=== PATIENT | male | born 1955 | race Caucasian/White ===

== ENCOUNTER → 2018-01-06 13:10 | Outpatient (CLI) | payer OTHER, SELFPAY ==
--- NOTE | 2018-01-06 13:15 | VDLE_ITS ---
Reason For Study: LEG PAIN RIGHT LEFT GSV is normal. CFV is compressible, spontaneous, phasic, CFV is compressible, spontaneous, phasic, competent, and demonstrates normal competent and demonstrates normal augmentation. augmentation. FV is compressible, spontaneous, phasic, competent and demonstrates normal augmentation. POP V is compressible, spontaneous, phasic, competent and demonstrates normal augmentation. T/P Trunk is compressible. PTV is compressible. RT PerV is compressible. Procedure Exam performed in department. A preliminary report was called and/or faxed to Dr. Kirby. Interpretation Summary Deep veins of the right lower extremity are patent and compressible segmentally. There is no evidence of right lower extremity deep vein thrombosis. Valvular competence appears intact within the proximal deep venous system on the right . The right greater saphenous vein appears patent and compressible segmentally. Ordering Physician: Gurpreet Kirby Referring Physician: Gurpreet Kirby Performed By: Yadira Romero RVT
== END ==
PROVIDERS: Family Provider Family Medicine; PCP Family Medicine; Visit Provider Family Medicine
DX: R60.0 Localized edema (principal); M79.606 Pain in leg, unspecified
CPT/HCPCS: 93971

== ENCOUNTER 2018-03-11 06:54 | Day surgery (SDC) | payer OTHER, SELFPAY ==
[2018-03-11] VITALS (7 sets, daily range): BP systolic 96–151; BP diastolic 51–81; PULSE 63–74; RESP 16–18; TEMP 36.6–37; O2SAT 94–97; BMI 30.2
--- NOTE | 2018-03-11 07:47 | HP.PCM_ITS ---
Past Medical/Surgical History - Planned Operation Planned Operative Procedure/s: colonosocpy open access Date of Operative Procedure: 03/11/18 Permit Signed: No S.O.S: No Is This Patient Having a Total Joint: No - Previous Hospitalizations/Surgeries HX Hospitalizations: No HX of Surgeries: gallbladder. colonoscopy x2 Any Problems With Anesthesia: No You/Your Family Experience Fever (Hyperthermia) With Anes: No Cholinesterase deficiency: No - Cardiovascular Hx Chest Pain within Last 2 months: No Hx of Irregular Heartbeat and/or Afib: No Hx Heart Attack: No Hx Congestive Heart Failure: No Hx Rheumatic Fever: No Hx Hypertension: Yes - controlled with med Hx Internal Defibrillator: No Hx Pacemaker: No Hx Cardiac Catheterization: No Hx Cardiac Surgery/Stents/Etc.: No Hx Stress Test: No HX Edema: No Hx Pain in Legs when Walking/Leg Cramps: No - Respiratory Chronic Cough: No HX of Shortness of Breath: No Hoarseness: No Hx Chronic Obstructive Pulmonary Disease (COPD): No Hx Asthma: No Hx Emphysema: No Hx Sleep Apnea: No Hx Oxygen Use at Home: No Hx Respiratory Tract Infection/Cold (presently): No Do You Snore Loudly (louder than talking or can be heard): Yes Do You Often Feel Tired/ Fatigued/ Sleepy Dring Daytime?: No Has Anyone Observed You Stop Breathing During Sleep?: No Result (for STOP score): Positive Hx Smoking: No Smoking Status: Never smoker - Gastrointestinal Hx Gastroesophageal Reflux: No Hx Gastrointestinal Disorders: No Hx Gastrointestinal Bleed: No Hx Ulcer: No Hx Hiatal Hernia: No Difficulty Chewing/Swallowing: No Recent Onset of Swallowing Problems: No Special diet followed at home: No Hx Unplanned Weight Loss of 20#: No HX Unplanned Weight Gain of 20#: No - Neurological Hx Seizures: No HX Syncope/Blackout Spells/Unconsciousness: No Hx CVA/Stroke: No Hx Transient Ischemic Attacks (TIA): No Hx Multiple Sclerosis: No Hx Parkinson's Disease: No Hx Head/Neck Injury: No Hx Headaches: No Hx Back Injury/Pain: No Recent Onset of Speech Difficulty: No Restless Legs: No Does patient have nerve stimulator: No Patient instructed to have device shut off: No Rep notified?: No - Blood Disorder Hx Leukemia: No Bleeding Tendencies: No Hx Deep Vein Thrombosis: No Hx High Cholesterol: Yes - no meds Blood Transmitted Disease: No Hx Hepatitis: No Hx Cirrhosis: No Hx Anemia: No Hx Blood Disorders: No - Genitourinary Hx Renal Disease: No - Musculoskeletal Hx Arthritis: No Hx Rheumatoid Arthritis: No Hx Gout: Yes - in the past Recent Onset of an Orthopedic Problem: No - Endocrine Hx Diabetes: No Thyroid Disease: No Hx Steroid Therapy: No - Psycho/Social Hx Substance Use: No Hx Alcohol Use: Yes - occ Hx Anxiety: No Hx Depression: No Mental Illness: No Hx Dementia: No - Miscellaneous Hx Cancer: No Recent Exposure to Contagious Disease: No Active MRSA: No Hx of C-Diff: No Any Loose Teeth: No Allergies Vxyyfpq-Tcl-Hul Reductase Inhibitor Adverse Reaction (Verified 03/10/18 08:15) muscle cramps - Discharge Is Pt Admitted From a Residential, or a Nursing Home: No Who Could Help: family After D/C, Where Do you Plan to Go: Return Home - From the PAT History Number of Risk Factors: 1 - Physical Exam General: Alert, Oriented x3, Cooperative HEENT: Atraumatic Lungs: Normal air movement Cardiovascular: Regular rate, Regular Rhythm Abdomen: Soft, Non Tender, Non-Distended Vital Signs Temp Pulse Resp BP Pulse Ox 98 F 74 16 151/81 H 97 03/11/18 07:11 03/11/18 07:11 03/11/18 07:11 03/11/18 07:11 03/11/18 07:11 Oxygen Delivery Method Room Air Weight: 228 lb 13.437 oz Body Mass Index (BMI) 30.2 Assessment/Plan 62-year-old male for screening colonoscopy. 1. The patient reports that he has had 2 colonoscopies in the past. He has no family history of colon cancer. His last colonoscopy was 7 years and they did find several polyps and he was recommended to have a repeat colonoscopy in 5 years but he has not followed up yet. He is having no abdominal pain or blood in his stool. No inadvertent weight loss. 2. I explained endoscopy in detail to the patient. I explained the risks including but not limited to stroke or heart attack with anesthesia, perforation of the GI tract, bleeding, infection. I explained that any of these could necessitate further emergency surgery. The patient understands and all questions were answered sufficiently. The patient wishes to proceed with procedure. Norberto Clark MD Pager: [facility] [address] [place] [address], [address] [place] [address] Office: Surgery Risks - Colonoscopy Risks Include but are not Limited To: Risks include but are not limited to: Bleeding, perforation requiring further surgery, inability to complete colonoscopy requiring barium enema.
--- NOTE | 2018-03-11 08:19 | COLBX_PTH ---
PATIENT: ANGEL CAMPO LOC: EN U#:[id number] AGE/SX: 62/M ROOM: RE03/11/[address]: Dr. Norberto Clark MD : [id number] BED: DIS: 03/11/2018 SPEC #: [id number] RECD: 03/11/18 12:30 STATUS: DYANA ANIKET #: [id number] [place]: 03/11/18 08:[address]: Norberto Clark DEPT: SURGICAL PATHOLOGY RECD BY: Rodo Gilliam ENTERED: 03/11/18 13:01 SP TYPE: COLON BX OTHR DR: Dr. Gurpreet Kirby, DO Tissues: A - Descending colon B - Descending colon Procedures: Surgery Specimen Level IV HEADER OPERATION: Colonoscopy PRE-OP DIAGNOSIS: Screening TISSUE SUBMITTED: A ? Proximal descending colon polyp biopsy, B ? Mid descending colon polyp biopsy MICROSCOPIC DIAGNOSIS A. Proximal descending colon polyp, biopsy: Tubular adenoma. B. Mid descending colon polyp, biopsy: Tubular adenoma. JOSELO:stefany 03/12/18 MICROSCOPIC DESCRIPTION Slides are reviewed. GROSS DESCRIPTION A - Received in fixative is one container labeled with the patient's name and designated proximal descending colon polyp biopsy. The specimen consists of two irregular fragments of light perera soft tissue that in aggregate measure 0.5 x 0.3 x 0.1 cm. The specimen is totally submitted in one cassette. B - Received in fixative is one container labeled with the patient's name and designated mid descending colon polyp biopsy. The specimen consists of one irregular fragment of light perera soft tissue that measures 0.3 x 0.2 x 0.1 cm. The specimen is totally submitted in one cassette. / SJ:stefany 03/11/18 TC:1 CPT: 46418 x2
--- NOTE | 2018-03-11 08:29 | PCM.OPRPT ---
Problem List (1) Screen for colon cancer Status: Acute Report of Operation Date of Procedure: 03/11/18 Pre-Operative Diagnosis: Screening colonoscopy Post-Operative Diagnosis: 2 small polyps Surgery/Procedure Performed:: Colonoscopy with biopsy Description of Procedure: The major risks and benefits associated with the procedure were explained to the patient in detail. The patient verbalized understanding and agreement with the same. The patient was brought to the endoscopy suite. After adequate sedation was achieved, the patient was placed in the left lateral decubitus position and a digital rectal exam was performed. This examination was within normal limits. A well-lubricated colonoscope was then inserted into the rectum and advanced under direct visualization to the level of the cecum. The bowel prep was good. The cecum was identified by both visual and anatomic landmarks. A photograph was taken of the end of the cecum. The scope was then fully withdrawn while examining the color, texture, anatomy and integrity of the mucosa from the cecum to the anal canal. The patient had 2 diminutive polyps in the descending colon which were both removed completely with cold forceps. Hemostasis was good at both sites. Otherwise the findings were consistent with normal colonic mucosa. Over 6 minutes were taken to examine the colonic mucosa. Upon reaching the rectum the scope was retroflexed to examine the distal rectal vault. The scope was then straightened and was completely retrieved upon exiting the anal canal and the procedure was terminated. The patient was then transferred to the recovery room in stable condition. Recommendations for follow up: Dependent on pathology.
== END 2018-03-11 09:05 | disposition home or self-care (01) ==
LOC: EN 06:54 → AC 07:44
PROVIDERS: Family Provider Family Medicine; PCP Family Medicine; Visit Provider Surgery
PROC: 0DJD8ZZ Inspection of Lower Intestinal Tract, Via Natural or Artificial Opening Endoscopic (ICD-10-PCS; CPT 45378; principal; 2018-03-11 07:55)
DX: Z12.11 Encounter for screening for malignant neoplasm of colon (principal); D12.4 Benign neoplasm of descending colon; I10 Essential (primary) hypertension; E78.00 Pure hypercholesterolemia, unspecified; Z86.39 Personal history of other endocrine, nutritional and metabolic disease
CPT/HCPCS: 45380; 88305; J7120

== ENCOUNTER → 2018-04-14 14:21 | Outpatient (CLI) | payer OTHER, SELFPAY ==
--- NOTE | 2018-04-14 14:25 | RAD_ITS ---
STUDY: X-RAY CHEST REASON FOR EXAM: Male, 62 years old. new onset aflutter, congestion TECHNIQUE: Frontal and lateral views of the chest. COMPARISON: None. FINDINGS: The lungs are clear and expanded. There is no demonstrated pleural abnormality. Normal size heart. Normal mediastinum and elisabeth. Normal visualized pulmonary arteries. Normal visualized aortic arch and descending thoracic aorta. There are diffuse degenerative changes of the visualized thoracic spine. There is degenerative osteoarthritis of the bilateral shoulders. There is no demonstrated abnormality of the visualized soft tissue structures of the upper abdomen. RAD/Chest PA and Lateral IMPRESSION: Degenerative changes, as described above. No demonstrated acute cardiopulmonary process. Electronically Signed: Ruben Conroy MD at 14:45 EDT Tel , Service support ,
[2018-04-14 15:21] LABS: Absolute Lymphocyte Count 1.69 X10^3/ul (0.83-4.51); Absolute Neutrophil Count 6.4 X10^3/uL (2.0-7.7); Basophil# 0.03 X10^3/uL; Basophil% 0.3 % (0-1); Eosinophil# 0.25 X10^3/uL; Eosinophils% 2.7 % (0-5); Hematocrit 46.3 % (40-54); Hemoglobin 15.8 g/dl (13.0-16.5); Lymphocyte # 1.69 X10^3/ul (4.0); Lymphocyte % 18.2 % (19-41); Mean Corp Hgb Conc 34.1 g/gl (32-36); Mean Corpuscular Hgb 31.4 pg (27.0-32.0); Mean Platelet Vol. 11.2 fl (6.2-12.0); Monocyte# 0.85 X10^3/uL; Monocyte% 9.2 % (0-10); Neutrophil # 6.44 X10^3/uL (2.7-7.7); Neutrophil % 69.5 % (47-70); Platelet Count 270 K/mm3 (150-450); RBC Distribution Width CV 12.9 % (11.6-14.6); RBC Distribution Width SD 42.4 fl (35.1-43.9); Red Blood Count 5.03 M/mm3 (4.6-6.2); White Blood Count 9.3 K/mm3 (4.4-11.0)
[2018-04-14 15:22] LABS: POSITIVE COUNT NO; POSITIVE DIFFERENTIAL NO; POSITIVE MORPHOLOGY NO
[2018-04-14 15:54] LABS: Anion Gap 10 (5-15); BUN 16 mg/dL (7-18); BUN/Creat Ratio 15.4 RATIO (10-20); Calcium,Total 9.4 mg/dL (8.5-10.1); Chloride 106 mmol/L (98-107); Creatinine, Serum 1.04 mg/dL (0.70-1.30); EST Glomerular Filtration Rate 76 mL/min (>60); Est Glom Filt Rate - Afr Amer 92 mL/min (>60); Glucose 96 mg/dL (74-106); Magnesium 2.3 mg/dL (1.6-2.6); Potassium 4.4 mmol/L (3.5-5.1); Sodium Level 141 mmol/L (136-145); Thyroid Stim Hormone (TSH) 1.82 uIU/mL (0.358-3.74)
== END ==
PROVIDERS: Family Provider Family Medicine; PCP Family Medicine; Visit Provider Family Medicine
DX: I48.92 Unspecified atrial flutter (principal); I10 Essential (primary) hypertension; R09.89 Other specified symptoms and signs involving the circulatory and respiratory systems
CPT/HCPCS: 36415; 71046; 80048; 83735; 84443; 85025

== ENCOUNTER 2018-04-16 14:57 | Inpatient (IN) | payer OTHER, SELFPAY ==
[2018-04-16] VITALS (16 sets, daily range): BP systolic 105–133; BP diastolic 66–98; PULSE 73–144; RESP 16–24; TEMP 36.5–36.8; O2SAT 95–98; BMI 30.8
--- NOTE | 2018-04-16 15:15 | EKG12_ITS ---
Test Reason : ADMISSION Blood Pressure : / mmHG Vent. Rate : 142 BPM Atrial Rate : 142 BPM P-R Int : 140 ms QRS Dur : 088 ms QT Int : 342 ms P-R-T Axes : 000 017 -61 degrees QTc Int : 526 ms Atrial flutter Abnormal ECG Confirmed by LINDEN WOODSON, AMAIRANI ([id number]), news video editor JAKE SÁNCHEZ ([id number]) on 04/21/2018 3:30:17 PM Referred By: Mike Palacios Confirmed By:AMAIRANI CHEATHAM MD
--- NOTE | 2018-04-16 15:21 | ECHOCS_ITS ---
Reason For Study: Atrial Flutter Procedure This was a 2D Doppler, Color Flow transthoracic echocardiogram. The study was technically difficult. Contrast injection was performed. Exam performed portable in patient room. Left Ventricle Normal LV size. Left ventricular systolic function is normal. The estimated ejection fraction is 60 %. Unable to assess diastolic dysfunction. No regional wall motion abnormalities noted. Right Ventricle Normal RV size. Normal systolic function. Atria Normal left atrium. Normal right atrium. No doppler evidence for ASD. Mitral Valve There is no mitral annular calcification. Normal mitral valve. Trivial mitral valve insufficiency. Tricuspid Valve Normal tricuspid valve. Trivial tricuspid valve insufficiency. Aortic Valve Trisinus/trileaflet aortic valve. Normal aortic valve. Trivial aortic valve insufficiency. Pulmonic Valve The pulmonic valve is not well visualized. Trivial pulmonic valve insufficiency. Great Vessels Normal sized aortic root. Pericardium/Pleural No pericardial effusion. Medication Diluted definity 3ml given slow IV push to enhance endocardial definition. MMode/2D Measurements & Calculations LVIDd: 4.3 cm IVSd: 1.2 cm Ao root diam: 4.6 cm LVIDs: 2.1 cm LVPWd: 1.1 cm FS: 50.0 % LAV(MOD-bp): 73.0 ml LA A4 area: 23.8 cm2 RA A4 area: 12.4 cm2 LAV(MOD-bp) Indexed: 31.7 ml/m2 LAV(MOD-sp2): 66.1 ml LAV(MOD-sp4): 75.4 ml Doppler Measurements & Calculations PA V2 max: 95.2 cm/sec Interpretation Summary The study was technically difficult. Contrast injection was performed. Left ventricular systolic function is normal. The estimated ejection fraction is 60 %. Trivial mitral valve insufficiency. Trivial tricuspid valve insufficiency. Trivial aortic valve insufficiency. Trivial pulmonic valve insufficiency. Unable to assess diastolic dysfunction. Ordering Physician: Mike Palacios Referring Physician: Mike Palacios Performed By: Eulogio Lopez RCS
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
[2018-04-16] MEDS: dilTIAZem 25 MG/5 ML Vial 10 MG IV BOLUS (15:49)
[2018-04-16] MEDS: 0.9% NaCl Peripheral Flush Adult/Peds IV (15:55)
[2018-04-16 16:10] LABS: Hematocrit 46.8 % (40-54); Hemoglobin 15.7 g/dl (13.0-16.5); Mean Corp Hgb Conc 33.5 g/gl (32-36); Mean Corpuscular Hgb 30.8 pg (27.0-32.0); Mean Corpuscular Volume 91.9 fL (80-94); Mean Platelet Vol. 10.9 fl (6.2-12.0); Platelet Count 293 K/mm3 (150-450); RBC Distribution Width CV 12.7 % (11.6-14.6); RBC Distribution Width SD 42.6 fl (35.1-43.9); Red Blood Count 5.09 M/mm3 (4.6-6.2); White Blood Count 9.6 K/mm3 (4.4-11.0)
[2018-04-16 16:11] LABS: Scan Indicated on CBC? Y/N NO
[2018-04-16 16:22] LABS: Prothrombin Time (Protime)PT. 13.2 SECONDS (11.7-14.9)
[2018-04-16 16:23] LABS: Partial Thromboplast Time 29.4 Seconds (24.1-36.2)
[2018-04-16] MEDS: Heparin Injection (Vial) 5,000 UNIT/ML VIAL IV (16:26)
[2018-04-16 16:30] LABS: ALB/GLOB Ratio 0.9 RATIO (0.9-2.4); AST(SGOT) 18 U/L (15-37); Alanine Aminotransfer ALT/SGPT 37 U/L (16-61); Albumin, Serum 3.7 g/dL (3.2-5.0); Alkaline Phosphatase 88 U/L (45-117); Anion Gap 9 (5-15); BUN 20 mg/dL (7-18); Calcium,Total 9.2 mg/dL (8.5-10.1); Chloride 105 mmol/L (98-107); Creatinine, Serum 1.05 mg/dL (0.70-1.30); EST Glomerular Filtration Rate 76 mL/min (>60); Est Glom Filt Rate - Afr Amer 91 mL/min (>60); Estimated Creatinine Clearance 80.32 ml/min; Globulin 3.9 g/dL (2.2-4.2); Glucose 86 mg/dL (74-106); Magnesium 2.2 mg/dL (1.6-2.6); Potassium 4.3 mmol/L (3.5-5.1); Protein, Total 7.6 g/dL (6.4-8.2); Sodium Level 139 mmol/L (136-145)
[2018-04-16 16:38] LABS: Thyroid Stim Hormone (TSH) 2.46 uIU/mL (0.358-3.74)
[2018-04-16 16:39] LABS: D-Dimer Quantitative (DVT/PE) < 0.27 FEU/ug/m (0.27-0.49)
--- NOTE | 2018-04-16 17:05 | RAD_ITS ---
STUDY: X-RAY CHEST REASON FOR EXAM: Male, 62 years old. Atrial flutter TECHNIQUE: PA and lateral COMPARISON: April 14, 2018 FINDINGS: Nonspecific elevation of the right hemidiaphragm. Lungs are clear.. There is no demonstrated pleural abnormality. Normal size heart. Normal mediastinum and elisabeth. Normal visualized pulmonary arteries. Normal visualized aortic arch and descending thoracic aorta. Dorsal spine demonstrates spondylosis Normal visualized ribs, clavicles. There are degenerative changes of the shoulders There are postsurgical changes in the right upper quadrant. No significant changes since prior exam RAD/Chest PA and Lateral IMPRESSION: No acute cardiopulmonary pathology Electronically Signed: Edis Motta MD at 20:59 EDT , Service support ,
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
--- NOTE | 2018-04-16 17:28 | CON.PCM_ITS ---
Problem List (1) Atrial flutter Status: Acute (2) Hyperlipidemia Status: Chronic Qualifiers: Hyperlipidemia type: unspecified Qualified Code(s): E78.5 - Hyperlipidemia , unspecified (3) Hypertension Status: Chronic Qualifiers: Reason for Consult Date of Consultation: 04/16/18 History of Present Illness: The patient is a 62 year old white male who presented to the outpatient setting this day for outpatient cardiovascular consultation of her recent cardiovascular diagnosis of atrial flutter with rapid ventricular response. He states his best of his knowledge she has never had any cardiovascular concerns. He recently traveled to and from [facility] [place] in [place]. He notes it is approximately a [address]. While in [place] he began to feel a jittery sensation in his chest. He states he felt somewhat anxious or nervous. He did not necessarily note other forms of chest discomfort or difficulty breathing. He did not have any episodes of obvious orthopnea, PND, or peripheral pitting edema. There was no near syncope or syncope. He subsequently returned to [place]. He was evaluated by his primary care physician on 04/14/2018. In the office he was diagnosed with atrial flutter with what appeared to be a 2-1 AV conduction with a ventricular rate of approximately 150 bpm. He underwent laboratory studies and chest x-rays which were unrevealing for any acute changes. He was placed on metoprolol succinate 50 mg p.o. daily. He was released home with instructions to report to the emergency department if he had acute issues and otherwise await upcoming cardiovascular consultation. He was seen in cardiovascular consultation this day in the outpatient setting. He appeared to remain in atrial flutter with variable rate with ventricular rates ranging from the 130s through the 140s. He had what appeared to be an RSR prime pattern which was considered nondiagnostic. He had nonspecific ST segment abnormality. He states he has not had any previous cardiovascular diagnosis to the best of his knowledge. He has not had any previous cardiovascular diagnostic studies performed to the best of his knowledge. He states he has been treated for hypertension in the past. He is not convinced his amlodipine has been all that successful for him. He states he has a history of hyperlipidemia. However he states he is not on any lipid-lowering therapy. [] Past Medical History Allergies/Adverse Reactions: Allergies Imcpkau-Bfl-Qyq Reductase Inhibitor Adverse Reaction (Verified 04/16/18 13:13) muscle cramps Home Medications: Ambulatory Orders Medication Instructions Recorded Amlodipine Besylate [Norvasc] 10 mg PO DAILY 03/10/18 Multivitamin [Multiple Vitamins] 1 ea PO DAILY 03/10/18 metoprolol succinate ER 50 mg 50 mg PO DAILY@1500 04/16/18 tablet,extended release 24 hr Past Medical History (Chronic Problems): Chronic Problems (Last Reviewed 04/16/18 @ 15:54 by Mike Palacios DO) Hypertension (Chronic) Hyperlipidemia (Chronic) Screen for colon cancer (Chronic) Surgical History: cholecystectomy, tonsillectomy Psychiatric History: No pertinent psych hx - *Family History Maternal Family History: Family History (Last Reviewed 04/16/18 @ 15:55 by Mike Palacios DO) Father CAD (coronary artery disease) Myocardial infarction Brother Myocardial infarction CAD (coronary artery disease) History Items: Cancer - melanoma Sibling Family History: Family History (Last Reviewed 04/16/18 @ 15:55 by Mike Palacios DO) Father CAD (coronary artery disease) Myocardial infarction Brother Myocardial infarction CAD (coronary artery disease) History Items: Heart Disease Paternal Family History: Family History (Last Reviewed 04/16/18 @ 15:55 by Mike Palacios DO) Father CAD (coronary artery disease) Myocardial infarction Brother Myocardial infarction CAD (coronary artery disease) History Items: Cancer - esophageal, Heart Disease Lives: Spouse/ Significant Other Smoking Status: Never smoker Tobacco Use: Non-smoker Alcohol: Occasional Drugs: None Review of Systems - Review of Systems General: Denies: Fever, Night Sweats, Fatigue Cardiovascular: Reports: Palpitations. Denies: Chest Discomfort, Shortness of Breath, Orthopnea, PND, Peripheral Edema, Lightheadedness, Dizziness, Near Syncope, Syncope Respiratory: Denies: Cough, Sputum Production, Hemoptysis Gastrointestinal: Denies: Hematemesis, Hematochezia, Melena Genitourinary: Denies: Dysuria, Hematuria Skin: Denies: Rash Subjectve: This is a pleasant 62-year-old white male who appears to be resting comfortably at the moment in no acute distress. Objective: Vital Signs Temp Pulse Resp BP Pulse Ox 98.0 F 123 H 17 129/74 H 96 04/16/18 15:15 04/16/18 16:30 04/16/18 16:30 04/16/18 16:30 04/16/18 16:30 Oxygen Delivery Method Room Air Weight: 233 lb 8 oz Body Mass Index (BMI) 30.8 General: Awake, Alert, Oriented x 3, Cooperative, No Acute Distress HEENT: Atraumatic, Normocephalic, PERRL, EOMI, Sclera Non Icteric Oral: Moist Mucosa Neck: Supple, Good ROM, No JVD Lungs: Clear to auscultation Cardiovascular: Irregular Rhythm, Normal S1, Normal S2 Vascular: No Carotid Bruits Abdomen: Bowel Sounds Present, Soft, Non Tender Extremities: No Cyanosis, No Clubbing, No edema Neurological: No Focal Motor or Sensory Deficit Psych/Mental Status: Appropriate, Normal Affect 04/16/18 15:52: PT 13.2, INR 1.0, APTT 29.4, D-Dimer Quant (PE/DVT) < 0.27 L 04/16/18 15:52: WBC 9.6, RBC 5.09, Hgb 15.7, Hct 46.8, MCV 91.9, MCH 30.8, MCHC 33.5, RDW 12.7, RDW Differential 42.6, Plt Count 293, MPV 10.9 04/16/18 15:52: Sodium 139, Potassium 4.3, Chloride 105, Carbon Dioxide 25.0, Anion Gap 9, BUN 20 H, Creatinine 1.05, Est GFR (MDRD) Af Amer 91, Est GFR (MDRD ) Non-Af 76, BUN/Creatinine Ratio 19.0, Glucose 86, Calcium 9.2, Magnesium 2.2, Total Bilirubin 0.70, Troponin I < 0.015 Rhythm: As noted above EKG: As noted above ECHO: Pending Stress Test: Pending CXR: Chest x-ray report from 04/14/2018 demonstrated no acute cardiopulmonary disease process per the radiology report. Assessment/Plan 1. Atrial flutter with rapid ventricular response The patient presents with a new diagnosis of atrial flutter with rapid ventricular response. It appears based upon his symptomatic history this may be have been in process for at least one week. He was evaluated 2 days ago and noted to be in atrial flutter with what appeared to be a 2-1 AV conduction. Today despite being on his beta-danielito therapy he appears to remain in atrial flutter with a variable AV block with rapid ventricular response. At the present time it was felt the patient would be better served being in the hospital for further evaluation and care. This will include additional laboratory studies as deemed appropriate including a d-dimer level to evaluate for any obvious thromboembolic disease related to his recent travels that would be contributing to his underlying atrial dysrhythmia. Also it would provide the opportunity for additional cardiovascular evaluation of his cardiac anatomy and function such as echocardiographic studies, exercise tolerance test/imaging studies, invasive cardiovascular studies if warranted, as well as an opportunity to attempt to regain sinus rhythm not only medically with rate control therapy, but with other options such as MALOU guided synchronized biphasic DC cardioversion. In the interim the patient would be treated medically. This will include IV diltiazem in attempt to slow his rate. It would also include anticoagulant therapy with IV heparin which can be adjusted in and around the time of various procedures especially if he would need any invasive procedures. Long-term the patient will need oral systemic anticoagulant therapy. Also, long-term the patient may be considered for referral to electrophysiology for consideration for flutter ablation therapy. 2. Hyperlipidemia The patient can have his lipid labs evaluated. He will need to be treated as deemed appropriate. 3. Hypertension The patient's blood pressure will be monitored. His medications may need to be adjusted to assist with his blood pressure control. Comment: The above was discussed with the patient, his spouse, and Dr. Palacios of the [facility] hospitalist staff. This note was generated with [employer] dictation software. It may contain incorrect words, spelling, and punctuation that were not noted in checking the note before signing.
[2018-04-16 22:44] LABS: Partial Thromboplast Time 100.6 Seconds (24.1-36.2)
[2018-04-17] VITALS (31 sets, daily range): BP systolic 101–164; BP diastolic 60–98; PULSE 58–138; RESP 10–22; TEMP 36.4–36.9; O2SAT 94–97
[2018-04-17 04:13] LABS: Partial Thromboplast Time 59.6 Seconds (24.1-36.2)
[2018-04-17] MEDS: Aspirin 81 MG TAB.CHEW PO (05:32)
[2018-04-17 05:54] LABS: Absolute Neutrophil Count 4.4 X10^3/uL (2.0-7.7); Basophil# 0.02 X10^3/uL; Basophil% 0.3 % (0-1); Eosinophil# 0.38 X10^3/uL; Eosinophils% 4.8 % (0-5); Hematocrit 46.2 % (40-54); Hemoglobin 15.2 g/dl (13.0-16.5); Lymphocyte % 29.3 % (19-41); Mean Corp Hgb Conc 32.9 g/gl (32-36); Mean Corpuscular Hgb 30.4 pg (27.0-32.0); Mean Corpuscular Volume 92.4 fL (80-94); Mean Platelet Vol. 11.1 fl (6.2-12.0); Monocyte# 0.73 X10^3/uL; Monocyte% 9.3 % (0-10); Neutrophil % 56.2 % (47-70); Platelet Count 254 K/mm3 (150-450); RBC Distribution Width CV 12.8 % (11.6-14.6); RBC Distribution Width SD 42.7 fl (35.1-43.9); White Blood Count 7.8 K/mm3 (4.4-11.0)
--- NOTE | 2018-04-17 05:55 | EKG12_ITS ---
Test Reason : AM EKG Blood Pressure : / mmHG Vent. Rate : 073 BPM Atrial Rate : 073 BPM P-R Int : 218 ms QRS Dur : 102 ms QT Int : 376 ms P-R-T Axes : 034 004 -01 degrees QTc Int : 414 ms Atrial flutter Confirmed by LINDEN WOODSON, AMAIRANI ([id number]), editor managing director JAKE SÁNCHEZ ([id number]) on 04/21/2018 3:26:49 PM Referred By: Mike Palacios Confirmed By:AMAIRANI CHEATHAM MD
[2018-04-17 05:58] LABS: Prothrombin Time (Protime)PT. 13.3 SECONDS (11.7-14.9)
[2018-04-17 06:10] LABS: POSITIVE COUNT NO; POSITIVE DIFFERENTIAL NO; POSITIVE MORPHOLOGY NO
[2018-04-17 06:23] LABS: Anion Gap 9 (5-15); BUN 17 mg/dL (7-18); Chloride 107 mmol/L (98-107); Cholesterol 231 mg/dL (200); Creatinine, Serum 1.06 mg/dL (0.70-1.30); EST Glomerular Filtration Rate 75 mL/min (>60); Est Glom Filt Rate - Afr Amer 90 mL/min (>60); Estimated Creatinine Clearance 79.56 ml/min; Glucose 85 mg/dL (74-106); High Density Lipoprotein 37 mg/dL; Potassium 4.2 mmol/L (3.5-5.1); Sodium Level 141 mmol/L (136-145); Triglycerides 204 mg/dL; Very Low Density Lipoprotein 41 mg/dL (5-40)
--- NOTE | 2018-04-17 06:45 | NURSING ---
THE PATIENT IS OFF THE FLOOR GETTING STRESS TEST NOW.
[2018-04-17 09:37] LABS: Partial Thromboplast Time 46.9 Seconds (24.1-36.2)
[2018-04-17] MEDS: Heparin Injection (Vial) 5,000 UNIT/ML VIAL IV (09:55)
[2018-04-17] MEDS: Multivitamins,Therapeutic Tablet 1 TABLET PO (09:55)
--- NOTE | 2018-04-17 10:01 | STRESSREP ---
Stress Test Report Date: 04/16/2018 Procedure: Pharmacologic stress nuclear imaging study Indications: Palpitations; atrial flutter Consent: Per the patient Procedure: The patient underwent pharmacologic (Regadenoson) evaluation with a peak heart rate of 148 beats per minute (94 predicted maximal heart rate) and a peak blood pressure of 130/84 mmHg. The baseline ECG demonstrated atrial flutter with variable AV block. The peak pharmacologic ECG demonstrated no obvious ECG changes. There was a rare PVC during recovery. There was no complaint of chest discomfort during pharmacologic infusion or recovery. The examination was discontinued secondary to completion of protocol. Impression: 1. Pharmacologic (Regadenoson) evaluation 2. Peak pharmacologic ECG with no obvious ECG changes. 3. There was a rare PVC during recovery 4. Nuclear images pending Myocardial perfusion imaging study: Technique: The patient was injected with 14.8 millicuries of technetium 99m Cardiolite and subsequently rest SPECT Cardiolite nuclear imaging was obtained in the horizontal long, vertical long, and short axis views. The patient underwent pharmacologic (Regadenoson) evaluation with a peak heart rate of 148 beats per minute (94 % percent predicted maximal heart rate) and a peak blood pressure of 130/84 mmHg. The patient was injected with 44.7 millicuries of technetium 99m Cardiolite and subsequently stress SPECT Cardiolite nuclear imaging was obtained in the horizontal long, vertical long, and short axis views. A gated Cardiolite study at peak stress was obtained. Interpretation: Rest and stress SPECT Cardiolite nuclear imaging status post realignment, normalization, and attenuation correction demonstrate relative uniform tracer uptake and myocardial perfusion appearing within normal limits. There is end systolic thickening and brightening. The gated Cardiolite study demonstrates myocardial thickening and inward wall motion. The reported LVEF is 53 %. Impression: 1. Rest and stress SPECT Cardiolite nuclear imaging demonstrate relative uniform tracer uptake and myocardial perfusion appearing within normal limits. 2. The gated Cardiolite study reports an LVEF of 53 %. This note was generated with [employer] software. It may contain incorrect words, spelling, and punctuation that were not noted in checking the note before signing.
--- NOTE | 2018-04-17 10:05 | EKG12_ITS ---
Test Reason : POST CARDIOVERSION Blood Pressure : / mmHG Vent. Rate : 060 BPM Atrial Rate : 060 BPM P-R Int : 128 ms QRS Dur : 102 ms QT Int : 414 ms P-R-T Axes : 000 -07 010 degrees QTc Int : 414 ms Normal sinus rhythm Inferior infarct , age undetermined , cannot be excluded Abnormal ECG Confirmed by LINDEN WOODSON, AMAIRANI ([id number]), school photograph editor JAKE SÁNCHEZ ([id number]) on 04/24/2018 8:27:20 AM Referred By: Mike Palacios Confirmed By:AMAIRANI CHEATHAM MD
--- NOTE | 2018-04-17 10:05 | ECHOTEE_ITS ---
Reason For Study: Afib-Flutter Medication MALOU probe passed with minimal difficulty. No complications were noted. Topex Topical Kellogg given X9 metered doses orally. Versed 2 mg given slow IVP. Fentanyl 100 mcg given slow IVP. Performed a rapid injection of agitated mix of 9 cc saline and 1cc air to assess for atrial septal defect. Left Ventricle Normal LV size. Left ventricular systolic function is normal. The estimated ejection fraction is 60 %. No regional wall motion abnormalities noted. Right Ventricle Normal RV size. The right ventricular wall motion is normal. Atria No doppler evidence for ASD. Bubble contrast study negative for right to left interatrial shunt. The left atrium is mildly enlarged. There is no sponatenous contrast in the left atrium. No thrombus is detected in the left atrial appendage. Normal right atrium. There is no sponatenous contrast in the right atrium. No RA / appendage thrombus identified. Mitral Valve There is no mitral annular calcification. Normal mitral valve. Mild-Moderate (1-2+) mitral valve insufficiency. Tricuspid Valve Normal tricuspid valve. Trivial tricuspid valve insufficiency. Aortic Valve Trisinus/trileaflet aortic valve. Normal aortic valve. Pulmonic Valve The pulmonic valve is not well visualized. Vessels Borderline enlarged aortic root / ascending aorta. Pericardium No pericardial effusion. Interpretation Summary Left ventricular systolic function is normal. The estimated ejection fraction is 60 %. The left atrium is mildly enlarged. There is no sponatenous contrast in the left atrium. No thrombus is detected in the left atrial appendage. Mild-Moderate (1-2+) mitral valve insufficiency. Trivial tricuspid valve insufficiency. Bubble contrast study negative for right to left interatrial shunt. Borderline enlarged aortic root / ascending aorta. Ordering Physician: Vineet Campos Referring Physician: Mike Palacios Performed By: Eulogio Lopez RCS ??? Reason For Study: Afib-Flutter Interpretation Summary Left ventricular systolic function is normal. The estimated ejection fraction is 60 %. The left atrium is mildly enlarged. There is no sponatenous contrast in the left atrium. No thrombus is detected in the left atrial appendage. Mild-Moderate (1-2+) mitral valve insufficiency. Trivial tricuspid valve insufficiency. Bubble contrast study negative for right to left interatrial shunt. Borderline enlarged aortic root / ascending aorta. Ordering Physician: Vineet Campos Referring Physician: Mike Palacios Performed By: Eulogio Lopez RCS
--- NOTE | 2018-04-17 11:40 | CASEMGMT ---
This RN CM to room to complete CM assessment and pt is out of the dept for testing at this time. Will attempt again later. SStaten RN CM
--- NOTE | 2018-04-17 13:25 | EKG12_ITS ---
Test Reason : PREOP Blood Pressure : / mmHG Vent. Rate : 098 BPM Atrial Rate : 098 BPM P-R Int : 128 ms QRS Dur : 088 ms QT Int : 296 ms P-R-T Axes : 000 010 007 degrees QTc Int : 377 ms Sinus rhythm with marked sinus arrhythmia Abnormal ECG Confirmed by LINDEN WOODSON, AMAIRANI ([id number]), editor dictionary JAKE SÁNCHEZ ([id number]) on 04/24/2018 8:27:45 AM Referred By: Mike Palacios Confirmed By:AMAIRANI CHEATHAM MD
--- NOTE | 2018-04-17 13:28 | PCM.OP.BLANK ---
Problem List (1) Atrial flutter Status: Acute (2) Hyperlipidemia Status: Chronic Qualifiers: Hyperlipidemia type: unspecified Qualified Code(s): E78.5 - Hyperlipidemia, unspecified (3) Hypertension Status: Chronic Qualifiers: Operative Report Date of Procedure: 04/17/18 Procedure: Synchronized biphasic DC cardioversion Indications: Atrial flutter with rapid ventricular response Consent: Per the patient Anesthesia: Per Dr. Issa Stratton pulmonology and critical care medicine with propofol 60 mg IV push total Procedure: Synchronized biphasic DC cardioversion: 50 J ?1: Result: Sinus rhythm/sinus bradycardia; PACs Complications: No apparent complications This note was generated with [employer] software. It may contain incorrect words, spelling, and punctuation that were not noted in checking the note before signing.
--- NOTE | 2018-04-17 14:58 | PCM.OP.BLANK ---
Problem List (1) Hypertension Status: Chronic Qualifiers: Hypertension type: essential hypertension (2) Hyperlipidemia Status: Chronic Qualifiers: Hyperlipidemia type: unspecified Qualified Code(s): E78.5 - Hyperlipidemia, unspecified (3) Atrial flutter Status: Acute Qualifiers: Atrial flutter type: typical Qualified Code(s): I48.3 - Typical atrial flutter (4) LISHA (obstructive sleep apnea) Status: Chronic Operative Report Date of Procedure: 04/17/18 CONSCIOUS SEDATION REPORT BRIEF HISTORY OF PRESENT ILLNESS: The patient is a 62-year-old male who presented to [facility] for an elective outpatient cardioversion due to underlying atrial fibrillation. The patient reports no PO intake since midnight. The patient does have a history of obstructive sleep apnea, but is noncompliant with therapy. The patient reports no history of smoking and COPD. The patient denies any recent constitutional symptoms such as fevers, chills, nausea or vomiting. The patient denies previous anesthetic complications. Patient received a MALOU just prior to cardioversion and received 2 mg of Versed and 100 mcg of fentanyl. PHYSICAL EXAMINATION: VITAL SIGNS: Reviewed and were acceptable. GENERAL: The patient is an obese male, in no apparent distress, speaking in full sentences. HEENT: Normocephalic, atraumatic. Mucous membranes are moist and pink. Good mouth opening noted. Trachea is midline. Good neck mobility. MP III CHEST: S1, S2 irregularly irregular. No murmurs, rubs or gallops were noted. LUNGS: Clear to auscultation bilaterally without appreciable wheezes, rales or rhonchi. ABDOMEN: Soft, nontender, nondistended. Positive bowel sounds. EXTREMITIES: There is no clubbing, cyanosis or edema. ASA Class: II DESCRIPTION OF PROCEDURE: After confirmation of informed consent, the patient's anesthesia plan was reviewed in detail. Propofol was chosen. Risks and benefits were reviewed and the patient agreed to proceed. At 1:10 PM, the patient was given 40 mg of propofol. The patient required a total of 60 mg of propofol throughout the procedure to achieve appropriate sedation. The patient achieved an appropriate level of sedation and received 1 attempt s synchronized cardioversion, at [address] Campos at the bedside. This was successful in achieving normal sinus rhythm. The patient was monitored until 1:19 PM, at which time the patient reached their baseline mental status and function. The patient tolerated the procedure well. COMPLICATIONS: None ESTIMATED BLOOD LOSS: None RECOMMENDATIONS: Okay to recover in usual fashion. Code Visit 9xxxx: Other Procedure See Report - [id number]
--- NOTE | 2018-04-17 15:18 | PCM.PROGNOTE ---
<Oliver Puente - Last Filed: 04/17/18 15:18> Subjective: Pt seen and examined post MALOU/Cardioversion. He tolerated both procedures well with no difficulties. Currently resting comfortably in bed, no CP, SOB, palpitations, LH, dizziness. He will stay overnight for monitoring. I discussed his stain intolerance with him. He has been on different statins for about ten years. He states that he tolerates them at low doses, but with increasing doses and long duration he gets severe leg pain and weakness, to the point where he almost could not walk. He states that he best tolerated crestor and is willing to go back on a low dose. - Physical Exam General: Alert, Oriented x3, Cooperative HEENT: Atraumatic, PERRLA, EOMI, Normocephalic Neck: Supple, No JVD, Negative Carotid Bruits Lungs: Clear to auscultation, Normal air movement Cardiovascular: Regular rate, No murmurs Abdomen: Bowel Sounds Present, Soft, Non Tender Extremities: No edema, Capillary Refill Less than 3 Seconds Skin: No rashes, No breakdown Musculoskeletal: No Tenderness to Palpation of Joints or Extremities Neurological: Cranial nerves II-XII grossly intact Psych/Mental Status: Normal Affect, Appropriate, Alert and oriented to time, place, person, mood and affect Vital Signs Temp Pulse Resp BP Pulse Ox 98.1 F 64 18 125/79 H 96 04/17/18 09:30 04/17/18 14:29 04/17/18 14:29 04/17/18 14:29 04/17/18 14:29 Oxygen Delivery Method Room Air Weight: 233 lb 8.006 oz Body Mass Index (BMI) 30.8 Intake and Output for Last 24 Hours 04/15/18 04/16/18 04/17/18 23:59 23:59 23:59 Intake Total 501.2 / 501.2 629 / 629 Balance 501.2 / 501.2 629 / 629 Laboratory Tests Past 24 Hrs 04/16/18 04/16/18 04/16/18 15:52 15:52 15:52 WBC 9.6 RBC 5.09 Hgb 15.7 Hct 46.8 MCV 91.9 MCH 30.8 MCHC 33.5 RDW 12.7 RDW Differential 42.6 Plt Count 293 MPV 10.9 Immature Gran % (Auto) Neut % (Auto) Lymph % (Auto) [place] % (Auto) Eos % (Auto) Baso % (Auto) Absolute Neuts (auto) Absolute Lymphs (auto) Total Counted PT 13.2 INR 1.0 APTT 29.4 D-Dimer Quant (PE/DVT) < 0.27 L Sodium Potassium Chloride Carbon Dioxide Anion Gap BUN Creatinine Estim Creat Clear Calc Est GFR (MDRD) Af Amer Est GFR (MDRD) Non-Af BUN/Creatinine Ratio Glucose Calcium Magnesium Total Bilirubin AST ALT Alkaline Phosphatase Troponin I Total Protein Albumin Globulin Albumin/Globulin Ratio Triglycerides Cholesterol LDL Cholesterol VLDL Cholesterol HDL Cholesterol TSH 2.46 04/16/18 04/16/18 04/16/18 15:52 18:11 22:11 WBC RBC Hgb Hct MCV MCH MCHC RDW RDW Differential Plt Count MPV Immature Gran % (Auto) Neut % (Auto) Lymph % (Auto) [place] % (Auto) Eos % (Auto) Baso % (Auto) Absolute Neuts (auto) Absolute Lymphs (auto) Total Counted PT INR APTT D-Dimer Quant (PE/DVT) Sodium 139 Potassium 4.3 Chloride 105 Carbon Dioxide 25.0 Anion Gap 9 BUN 20 H Creatinine 1.05 Estim Creat Clear Calc 80.32 Est GFR (MDRD) Af Amer 91 Est GFR (MDRD) Non-Af 76 BUN/Creatinine Ratio 19.0 Glucose 86 Calcium 9.2 Magnesium 2.2 Total Bilirubin 0.70 AST 18 ALT 37 Alkaline Phosphatase 88 Troponin I < 0.015 < 0.015 < 0.015 Total Protein 7.6 Albumin 3.7 Globulin 3.9 Albumin/Globulin Ratio 0.9 Triglycerides Cholesterol LDL Cholesterol VLDL Cholesterol HDL Cholesterol TSH 04/16/18 04/17/18 04/17/18 22:11 03:54 03:54 WBC 7.8 RBC 5.00 Hgb 15.2 Hct 46.2 MCV 92.4 MCH 30.4 MCHC 32.9 RDW 12.8 RDW Differential 42.7 Plt Count 254 MPV 11.1 Immature Gran % (Auto) 0.100 Neut % (Auto) 56.2 Lymph % (Auto) 29.3 [place] % (Auto) 9.3 Eos % (Auto) 4.8 Baso % (Auto) 0.3 Absolute Neuts (auto) 4.4 Absolute Lymphs (auto) 2.30 Total Counted Not Reportable PT INR APTT 100.6 H* D-Dimer Quant (PE/DVT) Sodium 141 Potassium 4.2 Chloride 107 Carbon Dioxide 25.0 Anion Gap 9 BUN 17 Creatinine 1.06 Estim Creat Clear Calc 79.56 Est GFR (MDRD) Af Amer 90 Est GFR (MDRD) Non-Af 75 BUN/Creatinine Ratio 16.0 Glucose 85 Calcium 9.0 Magnesium Total Bilirubin AST ALT Alkaline Phosphatase Troponin I Total Protein Albumin Globulin Albumin/Globulin Ratio Triglycerides 204 H Cholesterol 231 H LDL Cholesterol 153 H VLDL Cholesterol 41 H HDL Cholesterol 37 L TSH 04/17/18 04/17/18 04/17/18 03:54 03:54 09:20 WBC RBC Hgb Hct MCV MCH MCHC RDW RDW Differential Plt Count MPV Immature Gran % (Auto) Neut % (Auto) Lymph % (Auto) [place] % (Auto) Eos % (Auto) Baso % (Auto) Absolute Neuts (auto) Absolute Lymphs (auto) Total Counted PT 13.3 INR 1.0 APTT 59.6 H 46.9 H D-Dimer Quant (PE/DVT) Sodium Potassium Chloride Carbon Dioxide Anion Gap BUN Creatinine Estim Creat Clear Calc Est GFR (MDRD) Af Amer Est GFR (MDRD) Non-Af BUN/Creatinine Ratio Glucose Calcium Magnesium Total Bilirubin AST ALT Alkaline Phosphatase Troponin I Total Protein Albumin Globulin Albumin/Globulin Ratio Triglycerides Cholesterol LDL Cholesterol VLDL Cholesterol HDL Cholesterol TSH Medical Necessity - Tobacco Use Smoking Status: Never smoker Tobacco Use: Non-smoker Assessment/Plan All Active Problems (Last Reviewed 04/16/18 @ 15:54 by Mike Palacios DO) Atrial flutter (Acute) 1. New onset Aflutter - now NSR post MALOU/Cardioversion today. Started on xarelto. Continue toprol. Continue asa. Dr. Campos following. TSH normal. 2. HTN - norvasc stopped, aydee-i started. 3. HLD - willing to try low dose crestor as it was the best tolerated in the past. He may be a candidate for repatha given his intolerance. I have advised him to discuss this with his PCP. Total chol, LDL, and Trigs all high, HDL low. DVT ppx: xarelto. DC planning: will monitor overnight and DC in AM if stable. This patient was seen by Oliver Puente PA-C under the supervision of Doctor Richmond. <Donnell Fragoso E - Last Filed: 04/17/18 15:52> - Physical Exam Vital Signs Temp Pulse Resp BP Pulse Ox 98.4 F 62 16 131/81 H 97 04/17/18 15:15 04/17/18 15:41 04/17/18 15:15 04/17/18 15:15 04/17/18 15:15 Oxygen Delivery Method Room Air Weight: 233 lb 8.006 oz Body Mass Index (BMI) 30.8 Intake and Output for Last 24 Hours 04/15/18 04/16/18 04/17/18 23:59 23:59 23:59 Intake Total 501.2 / 501.2 629 / 629 Balance 501.2 / 501.2 629 / 629 Laboratory Tests Past 24 Hrs 04/16/18 04/16/18 04/16/18 15:52 15:52 15:52 WBC 9.6 RBC 5.09 Hgb 15.7 Hct 46.8 MCV 91.9 MCH 30.8 MCHC 33.5 RDW 12.7 RDW Differential 42.6 Plt Count 293 MPV 10.9 Immature Gran % (Auto) Neut % (Auto) Lymph % (Auto) [place] % (Auto) Eos % (Auto) Baso % (Auto) Absolute Neuts (auto) Absolute Lymphs (auto) Total Counted PT 13.2 INR 1.0 APTT 29.4 D-Dimer Quant (PE/DVT) < 0.27 L Sodium Potassium Chloride Carbon Dioxide Anion Gap BUN Creatinine Estim Creat Clear Calc Est GFR (MDRD) Af Amer Est GFR (MDRD) Non-Af BUN/Creatinine Ratio Glucose Calcium Magnesium Total Bilirubin AST ALT Alkaline Phosphatase Troponin I Total Protein Albumin Globulin Albumin/Globulin Ratio Triglycerides Cholesterol LDL Cholesterol VLDL Cholesterol HDL Cholesterol TSH 2.46 04/16/18 04/16/18 04/16/18 15:52 18:11 22:11 WBC RBC Hgb Hct MCV MCH MCHC RDW RDW Differential Plt Count MPV Immature Gran % (Auto) Neut % (Auto) Lymph % (Auto) [place] % (Auto) Eos % (Auto) Baso % (Auto) Absolute Neuts (auto) Absolute Lymphs (auto) Total Counted PT INR APTT D-Dimer Quant (PE/DVT) Sodium 139 Potassium 4.3 Chloride 105 Carbon Dioxide 25.0 Anion Gap 9 BUN 20 H Creatinine 1.05 Estim Creat Clear Calc 80.32 Est GFR (MDRD) Af Amer 91 Est GFR (MDRD) Non-Af 76 BUN/Creatinine Ratio 19.0 Glucose 86 Calcium 9.2 Magnesium 2.2 Total Bilirubin 0.70 AST 18 ALT 37 Alkaline Phosphatase 88 Troponin I < 0.015 < 0.015 < 0.015 Total Protein 7.6 Albumin 3.7 Globulin 3.9 Albumin/Globulin Ratio 0.9 Triglycerides Cholesterol LDL Cholesterol VLDL Cholesterol HDL Cholesterol TSH 04/16/18 04/17/18 04/17/18 22:11 03:54 03:54 WBC 7.8 RBC 5.00 Hgb 15.2 Hct 46.2 MCV 92.4 MCH 30.4 MCHC 32.9 RDW 12.8 RDW Differential 42.7 Plt Count 254 MPV 11.1 Immature Gran % (Auto) 0.100 Neut % (Auto) 56.2 Lymph % (Auto) 29.3 [place] % (Auto) 9.3 Eos % (Auto) 4.8 Baso % (Auto) 0.3 Absolute Neuts (auto) 4.4 Absolute Lymphs (auto) 2.30 Total Counted Not Reportable PT INR APTT 100.6 H* D-Dimer Quant (PE/DVT) Sodium 141 Potassium 4.2 Chloride 107 Carbon Dioxide 25.0 Anion Gap 9 BUN 17 Creatinine 1.06 Estim Creat Clear Calc 79.56 Est GFR (MDRD) Af Amer 90 Est GFR (MDRD) Non-Af 75 BUN/Creatinine Ratio 16.0 Glucose 85 Calcium 9.0 Magnesium Total Bilirubin AST ALT Alkaline Phosphatase Troponin I Total Protein Albumin Globulin Albumin/Globulin Ratio Triglycerides 204 H Cholesterol 231 H LDL Cholesterol 153 H VLDL Cholesterol 41 H HDL Cholesterol 37 L TSH 04/17/18 04/17/18 04/17/18 03:54 03:54 09:20 WBC RBC Hgb Hct MCV MCH MCHC RDW RDW Differential Plt Count MPV Immature Gran % (Auto) Neut % (Auto) Lymph % (Auto) [place] % (Auto) Eos % (Auto) Baso % (Auto) Absolute Neuts (auto) Absolute Lymphs (auto) Total Counted PT 13.3 INR 1.0 APTT 59.6 H 46.9 H D-Dimer Quant (PE/DVT) Sodium Potassium Chloride Carbon Dioxide Anion Gap BUN Creatinine Estim Creat Clear Calc Est GFR (MDRD) Af Amer Est GFR (MDRD) Non-Af BUN/Creatinine Ratio Glucose Calcium Magnesium Total Bilirubin AST ALT Alkaline Phosphatase Troponin I Total Protein Albumin Globulin Albumin/Globulin Ratio Triglycerides Cholesterol LDL Cholesterol VLDL Cholesterol HDL Cholesterol TSH Assessment/Plan Hospitalist note: I am seeing this patient in conjunction with Oliver Puente. I independently seen and examined the patient. Progress note above, laboratory data and imaging studies reviewed and I concur with the above treatment plan. Today, patient denies any chest pain or shortness of breath. He has no more palpitations. No dizziness or lightheadedness. He underwent MALOU and cardioversion this afternoon and he did well after the procedure and he converted back to sinus rhythm. At this time, his vital signs are stable. - Physical Exam General: Alert, Oriented x3, Cooperative, No apparent distress. HEENT: Atraumatic, PERRLA, EOMI. Neck: Supple, No JVD, Negative Carotid Bruits, Trachea Midline, Thyroid Normal. Lungs: Clear to auscultation, Normal air movement, No rhonchi, No wheeze, No rales. Cardiovascular: Regular rate, Regular Rhythm, Normal S1, Normal S2, PMI Normal. Abdomen: Bowel Sounds Present, Soft, Non Tender, Non-Distended, No Hepato-splenomegaly. Extremities: No clubbing, No cyanosis, No edema Skin: No rashes, No breakdown Neurological: Neuro grossly intact Vital Signs are stable. Assessment and plan: #1 new onset atrial flutter with RVR: Status post MALOU and cardioversion, converted back to sinus rhythm. At this time, vital signs are stable. Today morning, he underwent nuclear stress test that revealed no evidence of stress-induced myocardial ischemia. 2D echocardiogram revealed ejection fraction of 60%, no other acute findings and he has revealed MR, trivial TR and trivial AR. He is on aspirin, IV heparin drip, lisinopril and metoprolol for rate control. Plan to start him on Xarelto tonight. Cardiology on the case. #2 other chronic medical problems: Stable, continue current medications as above. This note was generated with [employer] dictation software. It may contain incorrect words, spelling, and punctuation that were not noted in checking the note before signing. Code Visit Inpatient E&M: 37689 Subs Hosp L2
[2018-04-17] MEDS: Rivaroxaban 20 MG Tablet PO (15:41)
[2018-04-17] MEDS: Metoprolol(XL)Succ 25 MG Tablet PO (15:41)
--- NOTE | 2018-04-17 15:42 | CASEMGMT ---
Face to Face with patient for initial transition planning/care coordination assessment. NGHIA THOMAS introduced self and role at [facility], pt voices understanding and consents to assessment at this time. Pt is sitting up in bed in no distress at this time. Pt is A/O x4 at this time and answers all questions appropriately at this time. Care providers, pharmacy, and demographics verified. See attached link. Pt voices no further concerns/needs at this time. Advised pt to ask for CM if any further questions/concerns/needs arise, voices understanding. CM to follow for anti-coagulation script. PLAN: [place] NGHIA THOMAS
--- NOTE | 2018-04-17 19:20 | PN.CARD_ITS ---
Subjectve: The patient underwent cardiovascular evaluation earlier this day with a combination of noninvasive studies including a transthoracic echocardiogram, a pharmacologic stress nuclear imaging study, a transesophageal echocardiogram, and subsequently he underwent a synchronized biphasic DC cardioversion to regain sinus rhythm. At the present time, post his last evaluation, he appeared to be symptomatically and hemodynamically stable with no new acute complaints. Objective: Vital Signs Temp Pulse Resp BP Pulse Ox 98.4 F 65 16 131/81 H 97 04/17/18 15:15 04/17/18 15:52 04/17/18 15:15 04/17/18 15:15 04/17/18 15:15 Oxygen Delivery Method Room Air Weight: 233 lb 8.006 oz Body Mass Index (BMI) 30.8 Intake and Output for Last 24 Hours 04/15/18 04/16/18 04/17/18 23:59 23:59 23:59 Intake Total 501.2 / 501.2 1189 / 1189 Balance 501.2 / 501.2 1189 / 1189 General: Healthy Appearing, Awake, Alert, Oriented x 3, Cooperative, No Acute Distress HEENT: Atraumatic, Normocephalic, PERRL, EOMI, Sclera Non Icteric Oral: Moist Mucosa Neck: Supple, Good ROM, No JVD Lungs: Clear to auscultation Cardiovascular: Regular Rhythm, Normal S1, Normal S2 Vascular: No Carotid Bruits Abdomen: Bowel Sounds Present, Soft, Non Tender Extremities: No Cyanosis, No Clubbing, No edema Neurological: No Focal Motor or Sensory Deficit Psych/Mental Status: Appropriate, Normal Affect 04/16/18 22:11: Troponin I < 0.015 04/16/18 22:11: APTT 100.6 H* 04/17/18 03:54: Sodium 141, Potassium 4.2, Chloride 107, Carbon Dioxide 25.0, Anion Gap 9, BUN 17, Creatinine 1.06, Est GFR (MDRD) Af Amer 90, Est GFR (MDRD) Non-Af 75, BUN/Creatinine Ratio 16.0, Glucose 85, Calcium 9.0, Triglycerides 204 H, Cholesterol 231 H, LDL Cholesterol 153 H, VLDL Cholesterol 41 H, HDL Cholesterol 37 L 04/17/18 03:54: WBC 7.8, RBC 5.00, Hgb 15.2, Hct 46.2, MCV 92.4, MCH 30.4, MCHC 32.9, RDW 12.8, RDW Differential 42.7, Plt Count 254, MPV 11.1, Immature Gran % (Auto) 0.100, Neut % (Auto) 56.2, Lymph % (Auto) 29.3, [place] % (Auto) 9.3, Eos % (Auto) 4.8, Baso % (Auto) 0.3, Absolute Neuts (auto) 4.4, Total Counted Not Reportable 04/17/18 03:54: PT 13.3, INR 1.0 04/17/18 03:54: APTT 59.6 H 04/17/18 09:20: APTT 46.9 H Rhythm: Sinus rhythm ECHO: Please see official report MALOU: Please see official report Stress Test: Please see official report Medical Necessity - Tobacco Use Smoking Status: Never smoker Tobacco Use: Non-smoker Assessment/Plan 1. Atrial flutter with rapid ventricular response The patient is presently in sinus rhythm status post his aforementioned evaluation and care. The plan is to continue rate limiting therapy and anticoagulant therapy. His rate limiting therapy and anticoagulant therapy are being altered from IV diltiazem to oral beta-blockers and IV heparin to oral anticoagulants. He should consider evaluation by electrophysiology for possible EPS/RFA of his atrial flutter. 2. Hyperlipidemia The patient can have his lipid labs evaluated. He will need to be treated as deemed appropriate. 3. Hypertension The patient's blood pressure will be monitored. His medications may need to be adjusted to assist with his blood pressure control. Comment: The above was discussed with the patient, his spouse, and Dr. Palacios of the [facility] hospitalist staff. This note was generated with [employer] dictation software. It may contain incorrect words, spelling, and punctuation that were not noted in checking the note before signing.
[2018-04-17] MEDS: 0.9% NaCl Peripheral Flush Adult/Peds IV (20:01)
[2018-04-17] MEDS: Lisinopril 10 MG Tablet PO (21:13)
[2018-04-18] VITALS (8 sets, daily range): BP systolic 82–119; BP diastolic 50–68; PULSE 56–65; RESP 14–16; TEMP 36.4–36.8; O2SAT 92–94
[2018-04-18] MEDS: Aspirin 81 MG TAB.CHEW PO (08:44)
[2018-04-18] MEDS: Multivitamins,Therapeutic Tablet 1 TABLET PO (08:44)
[2018-04-18] MEDS: Rivaroxaban 20 MG Tablet PO (12:30)
--- NOTE | 2018-04-18 12:30 | PCM.PN.CARD ---
Subjectve: The patient states he feels well. He denies any acute cardiovascular symptoms. Objective: Vital Signs Temp Pulse Resp BP Pulse Ox 97.5 F L 58 L 16 100/54 L 92 04/18/18 06:03 04/18/18 11:11 04/18/18 06:03 04/18/18 06:03 04/18/18 08:00 Oxygen Delivery Method Room Air Weight: 233 lb 8.006 oz Body Mass Index (BMI) 30.8 Intake and Output for Last 24 Hours 04/16/18 04/17/18 04/18/18 23:59 23:59 23:59 Intake Total 501.2 / 501.2 2589 / 2589 1400 / 1400 Balance 501.2 / 501.2 258 / 2589 1400 / 1400 General: Healthy Appearing, Awake, Alert, Oriented x 3, Cooperative, No Acute Distress HEENT: Atraumatic, Normocephalic, PERRL, EOMI, Sclera Non Icteric Oral: Moist Mucosa Neck: Supple, Good ROM, No JVD Lungs: Clear to auscultation Cardiovascular: Regular Rhythm, Normal S1, Normal S2 Vascular: No Carotid Bruits Abdomen: Bowel Sounds Present, Soft, Non Tender Extremities: No Cyanosis, No Clubbing, No edema Neurological: No Focal Motor or Sensory Deficit Psych/Mental Status: Appropriate, Normal Affect Rhythm: Sinus rhythm/sinus bradycardia EKG: Sinus rhythm; inferior HI of indeterminate age cannot be excluded; no acute ECG changes Medical Necessity - Tobacco Use Smoking Status: Never smoker Tobacco Use: Non-smoker Assessment/Plan 1. Atrial flutter with rapid ventricular response The patient is presently in sinus rhythm status post his aforementioned evaluation and care. The plan is to continue rate limiting therapy and anticoagulant therapy. He is currently on low-dose beta-danielito therapy and anticoagulant therapy. He should consider evaluation by electrophysiology for possible EPS/RFA of his atrial flutter. 2. Hyperlipidemia His lipids have been evaluated. They are elevated. He is willing to retry rosuvastatin/Crestor therapy which he states he did tolerate in the past. 3. Hypertension The patient's blood pressure will be monitored. His medications may need to be adjusted to assist with his blood pressure control. Comment: The above was discussed with the patient, his spouse, and members of the [facility] hospitalist staff. This note was generated with Dragon dictation software. It may contain incorrect words, spelling, and punctuation that were not noted in checking the note before signing.
[2018-04-18] MEDS: Metoprolol(XL)Succ 25 MG Tablet PO (12:31)
--- NOTE | 2018-04-18 12:36 | PCM.DC ---
- Discharge Diagnoses Current Active Problems: Current Active and Chronic Problems (Last Reviewed 04/16/18 @ 15:54 by Mike Palacios DO) LISHA (obstructive sleep apnea) (Chronic) You will use the following diet at home:: Cardiac - <2 g sodium daily Your food should be the consistency of: Regular Your liquids should be the consistency of: Regular/Thin Discharge Activity: Return to Normal Activity Allergies/Adverse Reactions: Allergies [id number] Reductase Inhibitor Adverse Reaction (Verified 04/16/18 13:13) muscle cramps Medications to take at Discharge Multivitamin [Multiple Vitamins] 1 ea PO DAILY 03/10/18 Metoprolol(XL)Succ [Toprol Xl (Beta Aubree)] 25 mg PO DAILY@1500 #30 tab 04/18/18 Rivaroxaban [Xarelto] 20 mg PO DINNER #30 tab 04/18/18 Rosuvastatin Calcium [Crestor] 5 mg PO QHS #30 tab 04/18/18 The following prescriptions were given: Metoprolol(XL)Succ [Toprol Xl (Beta Aubree)] 25 mg PO DAILY@1500 #30 tab Rivaroxaban [Xarelto] 20 mg PO DINNER #30 tab Rosuvastatin Calcium [Crestor] 5 mg PO QHS #30 tab Primary Care Physician: Gurpreet Kirby DO [Primary Care Provider] - Please follow up with your Primary Care Physician in: 2 weeks Test Results: Test results from this visit will be discussed in further detail at your follow-up appointment, if applicable. Please Follow Up With: Vineet Campos MD - Call for appointment When: 1-2 weeks Proposed Discharge Date: 04/18/18
--- NOTE | 2018-04-18 12:37 | PCM.DC.SUM ---
<Oliver Puente - Last Filed: 04/18/18 13:06> Discharge Date and Diagnosis Date of Admission: 04/16/18 Date of Discharge: 04/18/18 - Primary Discharge Diagnosis Atrial flutter, Paroxysmal AF with RVR HTN HLD - Secondary Discharge Diagnosis Chronic Problems (Last Reviewed 04/16/18 @ 15:54 by Mike Palacios DO) LISHA (obstructive sleep apnea) (Chronic) Hypertension (Chronic) Hyperlipidemia (Chronic) Screen for colon cancer (Chronic) Hospital Course and Treatment Imaging Results: MALOU: Interpretation Summary Left ventricular systolic function is normal. The estimated ejection fraction is 60 %. The left atrium is mildly enlarged. There is no sponatenous contrast in the left atrium. No thrombus is detected in the left atrial appendage. Mild-Moderate (1-2+) mitral valve insufficiency. Trivial tricuspid valve insufficiency. Bubble contrast study negative for right to left interatrial shunt. Borderline enlarged aortic root / ascending aorta. RAD/Chest PA and Lateral IMPRESSION: No acute cardiopulmonary pathology TTE: Interpretation Summary The study was technically difficult. Contrast injection was performed. Left ventricular systolic function is normal. The estimated ejection fraction is 60 %. Trivial mitral valve insufficiency. Trivial tricuspid valve insufficiency. Trivial aortic valve insufficiency. Trivial pulmonic valve insufficiency. Unable to assess diastolic dysfunction. Consultations 04/17/18 10:05 MD to MD Notification of Procedure Routine MD Notified:: Vineet Campos Operations: None Procedures: 2-D Echocardiogram, Cardioversion, Stress test, Transesophageal Echo Summary of Care Provided: Physical exam on day of discharge: General: Resting comfortably NAD Psych: A/Ox3 normal affect HEENT: PEARRLA AT NC Neck: Supple NT CV: RRR no m/t/r/g/h Resp: CTA Abd: [id number] Soft NT no guarding or rigidity Ext: DP2+= no edema Skin: W/D normal turgor Lymph/Heme: No active bleeding or adenopathy Neuro: CN2-12 intact Hospital course: The patient is a 62 year old M with a hx of HTN, HLD, who presented to the hospital from Dr. Campos's office where he was seen for AFib. He was seen by his PCP 2 days prior and was started on metoprolol for Afib with RVR after he presented to the office for palpitations that he developed while on vacation. In the cardiology office he was found to have a flutter with RVR and was sent to the hospital. He was placed on cardizem and heparin drips, and was placed on lisinopril. He remained in fib and tachycardic. He had a negative stress test. He then underwent MALOU/Cardioversion successfully. He was monitored overnight and developed mild hypotension that resolved spontaneously. He had his metoprolol reduced and lisinopril discontinued. He will have a follow up with Dr. Campos next week in the office. He was placed on Xarelto and metoprolol. He has poorly controlled cholesterol and has trialed multiple statins in the past. He never stayed on one particular agent as he would develop worsening muscle cramps with increasing doses. Given his heart issues and cholesterol numbers we strongly recommended restarting a statin. He was agreeable to low dose Crestor as this was the best tolerated in the past - according to him. He was discharged home in stable condition. This patient was seen by Oliver Puente PA-C under the supervision of Doctor Fragoso. [] Discharge Diet: Low fat/ Low Cholesterol, 2000 mg Sodium Diet Discharge Activity: Return to Normal Activity Home Medications: Medications to take at Discharge Multivitamin [Multiple Vitamins] 1 ea PO DAILY 03/10/18 Metoprolol(XL)Succ [Toprol Xl (Beta Aubree)] 25 mg PO DAILY@1500 #30 tab 04/18/18 Rivaroxaban [Xarelto] 20 mg PO DINNER #30 tab 04/18/18 Rosuvastatin Calcium [Crestor] 5 mg PO QHS #30 tab 04/18/18 Following Prescrptions Were Given to Patient: Metoprolol(XL)Succ [Toprol Xl (Beta Aubree)] 25 mg PO DAILY@1500 #30 tab Rivaroxaban [Xarelto] 20 mg PO DINNER #30 tab Rosuvastatin Calcium [Crestor] 5 mg PO QHS #30 tab Primary Care Physician: Gurpreet Kirby DO [Primary Care Provider] - Please follow up with your Primary Care Physician in: 2 weeks Please Follow Up With: Vineet Campos MD - Call for appointment When: 1-2 weeks Disposition: Home Minutes spent on discharge:: 35 Patient Condition:: Stable Medical Necessity - Tobacco Use Smoking Status: Never smoker Tobacco Use: Non-smoker Meaningful Use Info Meaningful Use Diagnoses (Choose all that apply): None applicable <Donnell Fragoso E - Last Filed: 04/18/18 15:18> Discharge Date and Diagnosis - Secondary Discharge Diagnosis Chronic Problems (Last Reviewed 04/16/18 @ 15:54 by Mike Palacios DO) LISHA (obstructive sleep apnea) (Chronic) Hypertension (Chronic) Hyperlipidemia (Chronic) Screen for colon cancer (Chronic) Hospital Course and Treatment Consultations 04/17/18 10:05 MD to MD Notification of Procedure Routine MD Notified:: Vineet Campos Summary of Care Provided: Hospitalist note: Discharge summary above reviewed and I agree with above discharge and treatment plan. Patient was admitted for palpitation, found to have new onset atrial flutter with RVR. He was treated with IV Cardizem drip and IV heparin drip for rate control and anticoagulation respectively. He underwent nuclear stress test that was negative for stress-induced myocardial ischemia. Transthoracic 2D echocardiogram revealed ejection fraction of 60% and no significant valvular heart disease. His routine blood work was unremarkable. His troponin was negative ?3. His TSH was normal. His sodium, potassium and magnesium were normal. Cardiology consulted and patient underwent transesophageal echocardiogram and cardioversion that resulted in sinus rhythm. Overnight, patient remained in sinus rhythm, rate is controlled and his blood pressure was stable. He was started on Xarelto for anticoagulation. Patient discharged home in a stable medical condition, discharged on metoprolol for rate control, discharged on Xarelto for anticoagulation, started on Crestor for hyperlipidemia, plan to follow-up with cardiology in 1-2 weeks, follow-up with PCP in 2 weeks. - Physical Exam General: Alert, Oriented x3, Cooperative, No apparent distress. HEENT: Atraumatic, PERRLA, EOMI. Neck: Supple, No JVD, Negative Carotid Bruits, Trachea Midline, Thyroid Normal. Lungs: Clear to auscultation, Normal air movement, No rhonchi, No wheeze, No rales. Cardiovascular: Regular rate, Regular Rhythm, Normal S1, Normal S2, PMI Normal. Abdomen: Bowel Sounds Present, Soft, Non Tender, Non-Distended, No Hepato-splenomegaly. Extremities: No clubbing, No cyanosis, No edema Skin: No rashes, No breakdown Neurological: Neuro grossly intact Vital Signs are stable. This note was generated with [employer] dictation software. It may contain incorrect words, spelling, and punctuation that were not noted in checking the note before signing. Minutes spent on discharge:: 32 Patient Condition:: Stable Meaningful Use Info Meaningful Use Diagnoses (Choose all that apply): None applicable Code Visit Inpatient E&M: 47696 Disch Hosp
--- NOTE | 2018-04-18 13:57 | CASEMGMT ---
Per Amol TAY, pt to be sent home on Xarelto and scripts e-scribed to [facility] in [place]. Call to [facility] and per yusuf [place], they do not have a card on file but ran pt through system and [employer] [facility] script coverage came back for pt. Per Nadya, co-pay for Xarelto is $50. Advised Nadya that pt has [facility] just for me and attempted to provide number but per Nadya, it will not run at this time. Per Nadya, Metoprolol script is $15.12 and Crestor is $0 co-pay. Pt/ updated on all at this time, voice understanding and provided with Xarelto 30 day free trial card and voice understanding. Pt/ voice no further concerns/needs at this time. Juaquin AGRAWAL CM
== END 2018-04-18 13:44 | disposition home or self-care (01) | DRG 310 ==
PROVIDERS: Internal Medicine Cardiovascular Disease; Family Provider Family Medicine; PCP Family Medicine; Visit Provider Hospitalist
DX: I48.3 Typical atrial flutter (principal); I48.0 Paroxysmal atrial fibrillation; I10 Essential (primary) hypertension; E78.5 Hyperlipidemia, unspecified; G47.33 Obstructive sleep apnea (adult) (pediatric); E66.9 Obesity, unspecified; Z68.30 Body mass index [BMI] 30.0-30.9, adult
CPT/HCPCS: 36415; 71046; 78452; 80048; 80053; 80061; 83735; 84443; 84484; 85025; 85027; 85379; 85610; 85730; 93005; 93017; 93306; 93312; 93320; 93325; 97802; A9500; J7040; Q9957; A4216; C8929; J2785

== ENCOUNTER → 2018-07-27 09:14 | Outpatient (CLI) | payer OTHER, SELFPAY ==
[2018-07-27 10:34] LABS: Absolute Lymphocyte Count 1.48 X10^3/ul (0.83-4.51); Absolute Neutrophil Count 5.1 X10^3/uL (2.0-7.7); Basophil# 0.02 X10^3/uL; Basophil% 0.3 % (0-1); Eosinophil# 0.25 X10^3/uL; Eosinophils% 3.3 % (0-5); Hematocrit 45.3 % (40-54); Hemoglobin 15.1 g/dl (13.0-16.5); Lymphocyte # 1.48 X10^3/ul (4.0); Lymphocyte % 19.7 % (19-41); Mean Corp Hgb Conc 33.3 g/gl (32-36); Mean Corpuscular Hgb 30.8 pg (27.0-32.0); Mean Corpuscular Volume 92.3 fL (80-94); Monocyte# 0.66 X10^3/uL; Monocyte% 8.8 % (0-10); Neutrophil # 5.11 X10^3/uL (2.7-7.7); Neutrophil % 67.8 % (47-70); Platelet Count 211 K/mm3 (150-450); RBC Distribution Width CV 12.8 % (11.6-14.6); RBC Distribution Width SD 42.6 fl (35.1-43.9); Red Blood Count 4.91 M/mm3 (4.6-6.2); White Blood Count 7.5 K/mm3 (4.4-11.0)
[2018-07-27 10:47] LABS: POSITIVE COUNT NO; POSITIVE DIFFERENTIAL NO; POSITIVE MORPHOLOGY NO
[2018-07-27 10:54] LABS: ALB/GLOB Ratio 1.1 RATIO (0.9-2.4); AST(SGOT) 28 U/L (15-37); Alanine Aminotransfer ALT/SGPT 48 U/L (16-61); Albumin, Serum 3.6 g/dL (3.2-5.0); Alkaline Phosphatase 81 U/L (45-117); Anion Gap 9 (5-15); BUN 18 mg/dL (7-18); BUN/Creat Ratio 15.8 RATIO (10-20); Calcium,Total 8.7 mg/dL (8.5-10.1); Chloride 103 mmol/L (98-107); Cholesterol 170 mg/dL (200); Creatinine, Serum 1.14 mg/dL (0.70-1.30); EST Glomerular Filtration Rate 69 mL/min (>60); Est Glom Filt Rate - Afr Amer 83 mL/min (>60); Globulin 3.3 g/dL (2.2-4.2); Glucose 125 mg/dL (74-106); High Density Lipoprotein 41 mg/dL; Magnesium 1.8 mg/dL (1.6-2.6); Potassium 4.3 mmol/L (3.5-5.1); Protein, Total 6.9 g/dL (6.4-8.2); Sodium Level 139 mmol/L (136-145); Thyroid Stim Hormone (TSH) 2.58 uIU/mL (0.358-3.74); Triglycerides 216 mg/dL; Uric Acid 7.8 mg/dL (3.5-7.2); Very Low Density Lipoprotein 43 mg/dL (5-40)
[2018-07-27 14:10] LABS: Hemoglobin A1c 5.6 % (4.2-6.3)
== END ==
PROVIDERS: Family Provider Family Medicine; PCP Family Medicine; Visit Provider Family Medicine
DX: I48.92 Unspecified atrial flutter (principal); I10 Essential (primary) hypertension; E78.5 Hyperlipidemia, unspecified; M10.9 Gout, unspecified; R73.9 Hyperglycemia, unspecified
CPT/HCPCS: 36415; 80053; 80061; 83036; 83735; 84443; 84550; 85025

== ENCOUNTER → 2018-11-19 08:57 | Outpatient (CLI) | payer OTHER, SELFPAY ==
[2018-11-18 14:12] VITALS: BMI 30.3
== END ==
PROVIDERS: Family Provider Family Medicine; PCP Family Medicine; Referring Provider Internal Medicine Cardiovascular Disease; Visit Provider Internal Medicine Cardiovascular Disease
DX: I48.92 Unspecified atrial flutter (principal); Z98.890 Other specified postprocedural states
CPT/HCPCS: 93225; 93226

== ENCOUNTER → 2019-01-19 08:13 | Outpatient (CLI) | payer MEDICARE, SELFPAY ==
[2018-11-18 14:12] VITALS: BMI 30.3
[2019-01-19 12:14] LABS: Absolute Lymphocyte Count 1.37 X10^3/ul (0.83-4.51); Absolute Neutrophil Count 3.9 X10^3/uL (2.0-7.7); Basophil# 0.01 X10^3/uL; Basophil% 0.2 % (0-1); Eosinophil# 0.23 X10^3/uL; Eosinophils% 3.8 % (0-5); Hematocrit 47.5 % (40-54); Hemoglobin 15.6 g/dl (13.0-16.5); Lymphocyte # 1.37 X10^3/ul (4.0); Lymphocyte % 22.6 % (19-41); Mean Corp Hgb Conc 32.8 g/gl (32-36); Mean Corpuscular Hgb 30.1 pg (27.0-32.0); Mean Corpuscular Volume 91.5 fL (80-94); Mean Platelet Vol. 12.1 fl (6.2-12.0); Monocyte# 0.59 X10^3/uL; Monocyte% 9.7 % (0-10); Neutrophil # 3.86 X10^3/uL (2.7-7.7); Neutrophil % 63.5 % (47-70); Platelet Count 214 K/mm3 (150-450); Red Blood Count 5.19 M/mm3 (4.6-6.2); White Blood Count 6.1 K/mm3 (4.4-11.0)
[2019-01-19 12:17] LABS: POSITIVE COUNT NO; POSITIVE DIFFERENTIAL NO; POSITIVE MORPHOLOGY NO
[2019-01-19 12:38] LABS: BUN 13 mg/dL (7-18); Glucose 89 mg/dL (74-106)
[2019-01-19 12:39] LABS: Anion Gap 8 (5-15); BUN/Creat Ratio 13.7 RATIO (10-20); Calcium,Total 9.1 mg/dL (8.5-10.1); Chloride 103 mmol/L (98-107); Creatinine, Serum 0.95 mg/dL (0.70-1.30); EST Glomerular Filtration Rate 85 mL/min (>60); Est Glom Filt Rate - Afr Amer 103 mL/min (>60); Potassium 4.1 mmol/L (3.5-5.1); Sodium Level 139 mmol/L (136-145)
[2019-01-20 20:06] LABS: CHOLESTEROL TOTAL 250 mg/dL (100-199); HDL-C 46 mg/dL (>39); SMALL LDL-P 1503 nmol/L (<=527); TRIGLYCERIDES 142 mg/dL (0-149)
[2019-01-22 13:00] LABS: INSULIN RESISTANCE SCORE 75 (<=45); LDL SIZE 20.6 nm (>20.5); LDL-C 176 mg/dL (0-99); LDL-P 2622 nmol/L (<1000)
== END ==
LOC: LAB.FUTURE 04-22 14:07 → BFHLAB 09-30 11:00
PROVIDERS: Family Provider Family Medicine; PCP Family Medicine; Visit Provider Family Medicine
DX: I10 Essential (primary) hypertension (principal); I48.92 Unspecified atrial flutter; M10.9 Gout, unspecified; E78.5 Hyperlipidemia, unspecified; M62.08 Separation of muscle (nontraumatic), other site
CPT/HCPCS: 36415; 80048; 80061; 83704; 85025

== ENCOUNTER → 2020-03-23 08:32 | Outpatient (CLI) | payer MEDICARE, SELFPAY ==
[2019-05-12 15:30] VITALS: BMI 30.9
[2019-11-17 11:09] VITALS: BMI 30.7
[2020-03-23 12:40] LABS: Absolute Lymphocyte Count 1.44 X10^3/uL (0.83-4.51); Absolute Neutrophil Count 3.9 X10^3/uL (2.0-7.7); Basophil# 0.04 X10^3/uL; Basophil% 0.6 % (0-1); Eosinophil# 0.31 X10^3/uL; Eosinophils% 4.9 % (0-5); Hematocrit 45.9 % (40-54); Hemoglobin 14.8 g/dL (13.0-16.5); Lymphocyte # 1.44 X10^3/ul (4.0); Lymphocyte % 22.6 % (19-41); Mean Corp Hgb Conc 32.2 g/dL (32-36); Mean Corpuscular Hgb 30.5 pg (27.0-32.0); Mean Corpuscular Volume 94.6 fL (80-94); Mean Platelet Vol. 11.9 fl (6.2-12.0); Monocyte# 0.67 X10^3/uL; Monocyte% 10.5 % (0-10); NRBC Flagged by Analyzer 0 % (0-5); Neutrophil # 3.89 X10^3/uL (2.7-7.7); Neutrophil % 60.9 % (47-70); Platelet Count 218 K/mm3 (150-450); RBC Distribution Width CV 12.8 % (11.6-14.6); RBC Distribution Width SD 44.3 fl (35.1-43.9); Red Blood Count 4.85 M/mm3 (4.6-6.2); White Blood Count 6.4 K/mm3 (4.4-11.0)
[2020-03-23 13:32] LABS: ALB/GLOB Ratio 1.1 RATIO (0.9-2.4); AST(SGOT) 22 U/L (15-37); Alanine Aminotransfer ALT/SGPT 33 U/L (16-61); Albumin, Serum 3.9 g/dL (3.2-5.0); Alkaline Phosphatase 82 U/L (45-117); Anion Gap 10 (5-15); BUN 18 mg/dL (7-18); BUN/Creat Ratio 18.5 RATIO (10-20); Calcium,Total 8.9 mg/dL (8.5-10.1); Chloride 100 mmol/L (98-107); Creatinine, Serum 0.97 mg/dL (0.70-1.30); EST Glomerular Filtration Rate 82 mL/min (>60); Est Glom Filt Rate - Afr Amer 99 mL/min (>60); Globulin 3.5 g/dL (2.2-4.2); Glucose 64 mg/dL (74-106); PSA,Total - Annual Screen 2.02 ng/mL (0.00-4.00); Potassium 3.7 mmol/L (3.5-5.1); Protein, Total 7.4 g/dL (6.4-8.2); Sodium Level 138 mmol/L (136-145)
[2020-03-23 13:44] LABS: Hemoglobin A1c 5.5 % (3.8-5.6)
== END ==
PROVIDERS: Family Provider Family Medicine; PCP Family Medicine; Visit Provider Family Medicine
DX: I10 Essential (primary) hypertension (principal); E78.5 Hyperlipidemia, unspecified; R73.01 Impaired fasting glucose; E88.81 Metabolic syndrome and other insulin resistance; M10.9 Gout, unspecified; Z12.5 Encounter for screening for malignant neoplasm of prostate; Z51.81 Encounter for therapeutic drug level monitoring
CPT/HCPCS: 36415; 80053; 83036; 84153; 84550; 85025; G0103

== ENCOUNTER → 2020-07-03 08:42 | Outpatient (CLI) | payer MEDICARE, SELFPAY ==
[2020-05-22 08:56] VITALS: BMI 28.5
[2020-07-03 12:53] LABS: Absolute Lymphocyte Count 1.39 X10^3/uL (0.83-4.51); Absolute Neutrophil Count 3.8 X10^3/uL (2.0-7.7); Basophil# 0.03 X10^3/uL; Basophil% 0.5 % (0-1); Eosinophil# 0.28 X10^3/uL; Eosinophils% 4.6 % (0-5); Hematocrit 47.1 % (40-54); Hemoglobin 15.1 g/dL (13.0-16.5); Lymphocyte # 1.39 X10^3/ul (4.0); Lymphocyte % 22.6 % (19-41); Mean Corp Hgb Conc 32.1 g/dL (32-36); Mean Corpuscular Hgb 30.6 pg (27.0-32.0); Mean Corpuscular Volume 95.5 fL (80-94); Mean Platelet Vol. 11.8 fl (6.2-12.0); Monocyte# 0.65 X10^3/uL; Monocyte% 10.6 % (0-10); NRBC Flagged by Analyzer 0 % (0-5); Neutrophil # 3.79 X10^3/uL (2.7-7.7); Neutrophil % 61.5 % (47-70); Platelet Count 231 K/mm3 (150-450); RBC Distribution Width CV 12.7 % (11.6-14.6); RBC Distribution Width SD 44.5 fl (35.1-43.9); Red Blood Count 4.93 M/mm3 (4.6-6.2); White Blood Count 6.2 K/mm3 (4.4-11.0)
[2020-07-03 13:15] LABS: Anion Gap 5 (5-15); BUN 16 mg/dL (7-18); BUN/Creat Ratio 16.6 RATIO (10-20); Calcium,Total 9.1 mg/dL (8.5-10.1); Chloride 108 mmol/L (98-107); Creatinine, Serum 0.96 mg/dL (0.70-1.30); EST Glomerular Filtration Rate 83 mL/min (>60); Est Glom Filt Rate - Afr Amer 100 mL/min (>60); Glucose 80 mg/dL (74-106); Potassium 4.2 mmol/L (3.5-5.1); Sodium Level 140 mmol/L (136-145); Uric Acid 5.3 mg/dL (3.5-7.2)
== END ==
PROVIDERS: PCP Family Medicine; Visit Provider Family Medicine
DX: I10 Essential (primary) hypertension (principal); M10.9 Gout, unspecified; Z51.81 Encounter for therapeutic drug level monitoring
CPT/HCPCS: 36415; 80048; 84550; 85025

== ENCOUNTER 2020-10-14 07:42 | Emergency (ER) | payer MEDICARE, SELFPAY ==
[2020-05-22 08:56] VITALS: BMI 28.5
[2020-10-14 07:45] VITALS: BP 161/82; PULSE 98; RESP 17; TEMP 36.6; O2SAT 96; BMI 28.5
--- NOTE | 2020-10-14 07:52 | EKG12_ITS ---
Test Reason : IRREGULAR HR Blood Pressure : / mmHG Vent. Rate : 096 BPM Atrial Rate : 089 BPM P-R Int : 000 ms QRS Dur : 100 ms QT Int : 340 ms P-R-T Axes : 000 005 010 degrees QTc Int : 429 ms Atrial fibrillation Incomplete right bundle branch block Possible Inferior infarct (cited on or before 17-APR-2018) Abnormal ECG Confirmed by LINDEN WOODSON, AMAIRANI ([id number]), scientific editor MAG BARAHONA ([id number]) on 10/17/2020 10:25:48 AM Referred By: LUCIO Confirmed By:AMAIRANI CHEATHAM MD
--- NOTE | 2020-10-14 07:52 | RAD_ITS ---
STUDY: X-RAY CHEST REASON FOR EXAM: Male, 64 years old patient with irregular heart beat. History of atrial fibrillation. TECHNIQUE: Single AP portable view of the chest. COMPARISON: 04/16/2018. FINDINGS: Cardiac monitoring leads are present. The lungs are expanded. There is no obvious airspace consolidation or pleural effusions. There is no demonstrated pleural abnormality. There is borderline cardiomegaly. Normal mediastinum and elisabeth. Normal visualized pulmonary arteries. There is atherosclerotic tortuosity of the aortic arch and descending thoracic aorta. There are diffuse degenerative changes of the visualized thoracic spine. There are degenerative changes of both shoulders. There is no demonstrated abnormality of the visualized soft tissue structures of the upper abdomen. RAD/Chest 1 View (Portable) IMPRESSION: No radiographic evidence of acute cardiopulmonary disease. Electronically Signed: Jolene Lino MD at 8:25 EST , Service support ,
[2020-10-14 07:53] VITALS: O2SAT 96
--- NOTE | 2020-10-14 08:05 | ED.DCSUM_ITS ---
- ER Visit Summary Date of Service: 10/14/20 Chief Complaint: Palpitations and fast heart rate History of Present Illness: The patient is a [address] of prior atrial flutter for which she had a cardiac ablation. That was about 2 years ago. He has not had any issues since that time. He was taken off his dysrhythmia medication after the ablation. He is on no anticoagulation other than daily aspirin. He denies any recent illness. He denies any nausea, vomiting, diarrhea or fever. He denies any chest pain or shortness of breath. Last evening he noticed his heart rate appeared to be irregular and at times rapid. Physical Examination: Older male no acute distress vital signs stable afebrile. Pulse ox 96% on room air no signs hypoxia. 1 in the room his heart rates as high as 123. It appears to be A. fib on the monitor. HEENT exam unremarkable. Neck nontender. Lungs clear to auscultation bilaterally. Heart irregularly irregular rate between 93 and 123. No murmur. Abdomen soft nontender normal bowel sounds no peritoneal signs. Extremities moves all 4. Calves are nontender without edema or cords. Neurologically is awake alert with no focal motor deficits. Test Results: EKG shows atrial fibrillation rate of 96 with no acute signs of NV or ischemia. There appears to be an incomplete right bundle branch block. Portable chest x-ray 1 view interpreted by myself shows no acute abnormality. Normal cardiac silhouette mediastinum. No infiltrate. Also read by the radiologist who agrees. CBC white count 8 hemoglobin 17. No significant abnormality. Chemistries unremarkable normal creatinine gap. Troponin normal. Repeat exam patient received 1 dose of IV Cardizem currently at 8:30 AM his heart rates in the 70s he is resting comfortably without complaints. He and I discussed has been on Cardizem in the past. Emergency Department Course and Treatment: 64-year-old male history of a flutter in the past post ablation currently on no cardiac meds. Has recurrent and acute atrial fibrillation with rapid ventricular rate. Patient be treated with IV Cardizem. He has been on that in the past. Patient has been observed in the emergency department and is doing well at 9:20 AM his heart rate is 77. He remains in A. fib/a flutter. He is resting comfortably. His blood pressure is normal. He will be discharged home. He will restart his Cardizem CD 120 mg/day. He will call his director product on Friday to get appointment in next several days. They need to determine if he still in a A. fib flutter. If so how they can to treat that. And lastly if he needs to be restarted on anticoagulation. He will continue his daily aspirin. Treatment Plan: Daily Cardizem. Call his director product Dr. Vineet Campos on Friday and try to be seen in the office this coming week. Return if feeling worse or accelerated heart rate consistently over 100. Disposition: Discharge Impression: Recurrent atrial fibrillation with rapid regular rate Prior history of cardiac ablation and atrial flutter This note was generated with [employer]ation software. It may contain incorrect words, spelling, and punctuation that were not noted in review of the chart prior to signing ED Disposition - Plan for ED Patient: Disposition: Home or Assisted Living Instructions: ED AFIB Prescriptions: Diltiazem CD [Cardizem CD] 120 mg PO DAILY #30 cap Prescription Printed Referrals: Vineet Campos MD [STAFF PHYSICIAN] - As soon as possible Additional Instructions: Today you had an episode of atrial fibrillation with an accelerated heart rate. We will restart you on Cardizem which is diltiazem once a day. Call and follow-up with Dr. Vineet Campos on Friday. See if they can have you seen in the office in the next several days. Return to the emergency department if you are feeling worse or if your heart rate becomes accelerated and is consistently over 100.
[2020-10-14 08:09] LABS: Absolute Lymphocyte Count 1.56 X10^3/uL (0.83-4.51); Absolute Neutrophil Count 5.9 X10^3/uL (2.0-7.7); Basophil# 0.06 X10^3/uL; Basophil% 0.7 % (0-1); Eosinophil# 0.33 X10^3/uL; Eosinophils% 3.7 % (0-5); Hematocrit 50.1 % (40-54); Hemoglobin 17.2 g/dL (13.0-16.5); Lymphocyte # 1.56 X10^3/ul (4.0); Lymphocyte % 17.7 % (19-41); Mean Corp Hgb Conc 34.3 g/dL (32-36); Mean Corpuscular Volume 93.1 fL (80-94); Mean Platelet Vol. 11.5 fl (6.2-12.0); Monocyte% 10.2 % (0-10); NRBC Flagged by Analyzer 0 % (0-5); Neutrophil # 5.94 X10^3/uL (2.7-7.7); Neutrophil % 67.4 % (47-70); POSITIVE MORPHOLOGY YES; Platelet Count 254 K/mm3 (150-450); RBC Distribution Width SD 44.2 fl (35.1-43.9); Red Blood Count 5.38 M/mm3 (4.6-6.2); White Blood Count 8.8 K/mm3 (4.4-11.0)
[2020-10-14 08:12] LABS: Differential Indicated SCAN CRITERIA MET
[2020-10-14] MEDS: dilTIAZem 25 MG/5 ML Vial IV BOLUS (08:17)
[2020-10-14 08:25] LABS: Anion Gap 7 (5-15); BUN 18 mg/dL (7-18); BUN/Creat Ratio 17.6 RATIO (10-20); Calcium,Total 8.7 mg/dL (8.5-10.1); Chloride 108 mmol/L (98-107); Creatinine, Serum 1.02 mg/dL (0.70-1.30); EST Glomerular Filtration Rate 78 mL/min (>60); Est Glom Filt Rate - Afr Amer 94 mL/min (>60); Estimated Creatinine Clearance 82.83 ml/min; Glucose 105 mg/dL (74-106); Potassium 4.1 mmol/L (3.5-5.1); Sodium Level 139 mmol/L (136-145)
[2020-10-14 08:33] LABS: Differential Comment SCANNED
--- NOTE | 2020-10-14 08:34 | ED.DEP ---
ED Disposition - Plan for ED Patient: Disposition: Home or Assisted Living Instructions: ED AFIB Prescriptions: Diltiazem CD [Cardizem CD] 120 mg PO DAILY #30 cap Prescription Printed Referrals: Vineet Campos MD [STAFF PHYSICIAN] - As soon as possible Additional Instructions: Today you had an episode of atrial fibrillation with an accelerated heart rate. We will restart you on Cardizem which is diltiazem once a day. Call and follow-up with Dr. Vineet Campos on Friday. See if they can have you seen in the office in the next several days. Return to the emergency department if you are feeling worse or if your heart rate becomes accelerated and is consistently over 100.
[2020-10-14 08:49] VITALS: BP 134/72; PULSE 63; RESP 14; O2SAT 96
[2020-10-14 09:27] VITALS: BP 119/77; PULSE 74; RESP 19; O2SAT 95
== END 2020-10-14 09:28 | disposition home or self-care (01) ==
PROVIDERS: Emergency Provider Emergency Medicine; PCP Family Medicine
DX: I48.91 Unspecified atrial fibrillation (principal); I48.92 Unspecified atrial flutter; I45.10 Unspecified right bundle-branch block; I10 Essential (primary) hypertension; Z79.82 Long term (current) use of aspirin; Z79.899 Other long term (current) drug therapy
CPT/HCPCS: 71045; 80048; 84484; 85025; 93005; 96374; 99285; A4216

== ENCOUNTER → 2020-11-03 10:53 | Outpatient (CLI) | payer MEDICARE, SELFPAY ==
[2020-10-23 09:57] VITALS: BMI 28.0
--- NOTE | 2020-11-03 10:54 | ECHOD_ITS ---
Reason For Study: AFIB/FLUTTER Procedure This was a 2D Doppler, Color Flow transthoracic echocardiogram. The study was technically difficult. Exam performed in department. Left Ventricle Normal LV size. Left ventricular systolic function is normal. The estimated ejection fraction is 55 %. No evidence for diastolic dysfunction. No regional wall motion abnormalities noted. Right Ventricle Normal RV size. Normal systolic function. Atria Normal left atrium. Normal right atrium. No doppler evidence for ASD. Mitral Valve There is no mitral annular calcification. Normal mitral valve. Trivial mitral valve insufficiency. Tricuspid Valve Normal tricuspid valve. Trivial tricuspid valve insufficiency. Right ventricular systolic pressure estimated to be 30 mmHg. Aortic Valve Trisinus/trileaflet aortic valve. Normal aortic valve. Pulmonic Valve The pulmonic valve is not well visualized. Trivial pulmonic valve insufficiency. Great Vessels Mildly dilated aortic root. Pericardium/Pleural No pericardial effusion. MMode/2D Measurements & Calculations LVIDd: 5.0 cm IVSd: 1.0 cm Ao root diam: 4.3 cm LVIDs: 3.1 cm LVPWd: 1.0 cm RVDd: 3.9 cm FS: 36.9 % LAV(MOD-bp): 71.5 ml LA A4 area: 19.6 cm2 LA dimension(2D): 4.1 cm LAV(MOD-bp) Indexed: 31.6 ml/m2 LAV(MOD-sp2): 79.7 ml LAV(MOD-sp4): 58.4 ml RA A4 area: 21.2 cm2 Time Measurements MV dec time: 0.26 sec Doppler Measurements & Calculations MV E max bob: 74.1 cm/sec Lat Peak E' Bob: 12.3 cm/sec Med Peak E' Bob: 13.7 cm/sec MV A max bob: 88.1 cm/sec E/E' lat: 6.0 E/E' med: 5.4 MV E/A: 0.84 Ao V2 max: 114.8 cm/sec LV V1 max: 100.4 cm/sec PA V2 max: 82.7 cm/sec Ao max P.3 mmHg LV V1 max P.0 mmHg TR max bob: 260.1 cm/sec TR max P.1 mmHg Interpretation Summary The study was technically difficult. Left ventricular systolic function is normal. The estimated ejection fraction is 55 %. Trivial mitral valve insufficiency. Trivial tricuspid valve insufficiency. Trivial pulmonic valve insufficiency. Mildly dilated aortic root. Right ventricular systolic pressure estimated to be 30 mmHg. No evidence for diastolic dysfunction. Ordering Physician: Sea Vasquez Referring Physician: Gurpreet Kirby Performed By: Keisha Spencer, PARDEEP, RVT
== END ==
PROVIDERS: PCP Family Medicine; Referring Provider Nurse Practitioner Family; Visit Provider Nurse Practitioner Family
DX: I48.0 Paroxysmal atrial fibrillation (principal); I10 Essential (primary) hypertension; E78.5 Hyperlipidemia, unspecified; G47.33 Obstructive sleep apnea (adult) (pediatric); Z98.890 Other specified postprocedural states
CPT/HCPCS: 93306

== ENCOUNTER → 2021-04-10 07:13 | Outpatient (CLI) | payer MEDICARE, SELFPAY ==
[2021-01-08 11:24] VITALS: BMI 28.6
[2021-04-10 10:42] LABS: Cholesterol 212 mg/dL (200); High Density Lipoprotein 44 mg/dL; PSA,Total - Annual Screen 1.88 ng/mL (0.00-4.00); Triglycerides 156 mg/dL; Uric Acid 5.6 mg/dL (3.5-7.2); Very Low Density Lipoprotein 31 mg/dL (5-40)
== END ==
PROVIDERS: PCP Family Medicine; Referring Provider Family Medicine; Visit Provider Family Medicine
DX: E78.5 Hyperlipidemia, unspecified (principal); M10.9 Gout, unspecified; Z12.5 Encounter for screening for malignant neoplasm of prostate
CPT/HCPCS: 36415; 80061; 84153; 84550; G0103

== ENCOUNTER → 2021-09-05 15:17 | Outpatient (CLI) | payer MEDICARE, SELFPAY | PROVIDERS: PCP Family Medicine; Visit Provider Family Medicine | DX: R44.8 Other symptoms and signs involving general sensations and perceptions (principal); H92.09 Otalgia, unspecified ear; J34.89 Other specified disorders of nose and nasal sinuses | CPT/HCPCS: 87635; U0005; U0003 ==

== ENCOUNTER 2021-11-24 04:41 | Emergency (ER) | payer MEDICARE, SELFPAY ==
[2021-11-24 04:42] VITALS: BP 160/85; PULSE 58; RESP 15; TEMP 36; O2SAT 96; BMI 30.2
--- NOTE | 2021-11-24 04:58 | CT_ITS ---
STUDY: CT BRAIN WITHOUT CONTRAST REASON FOR EXAM: Male, 65 years old. trauma/fall RADIATION DOSAGE (If Supplied By Facility): CTDIvol = ( 44.99 ) mGy, DLP = ( 829.85 ) mGycm TECHNIQUE: Transaxial CT imaging of the brain was performed without administration of intravenous contrast material. Individualized dose optimization techniques were used for this CT. COMPARISON: No relevant priors. FINDINGS: Normal soft tissue structures. Normal calvarium. Normal size ventricles and extra-axial spaces for the patient''s age. Normal white matter tracts of the cerebral hemispheres. Normal basal ganglia and thalami. Normal brainstem. Normal cerebellum. There is no intracranial hemorrhage. There are no findings of an acute ischemic infarction. There is mucoperiosteal inflammatory disease of the paranasal sinuses consistent with mild chronic sinusitis. CT/Brain/Head without Contrast IMPRESSION: No acute intracranial abnormality. Electronically Signed: Ruben Conroy MD at 5:51 EST ,
--- NOTE | 2021-11-24 04:59 | EDS_ITS ---
HPI HPI - Fall History of Present Illness Chief Complaint: Lower Extremity Injury Informant: patient Occured/Mechanism Occurred: Yesterday (Around 13-14 hours prior to evaluation) Fall from Height (ft): 2 or 3 feet from a stepstool Usually ambulates: Without assistance Pain/Injury Current Severity: Mild Maximum Severity: Moderate Worsened by: Weightbearing/walking Relieved by: Rest Associated Symptoms Associated Symptoms: Negative for Parasthesias, Weakness, Loss of function and Loss of consciousness Narrative Narrative: Patient was in his shop at home changing a light fixture while standing on a stepstool. He reached too far and lost his balance fell off, injuring the back of his head, his left hand, his right upper arm, his neck is sore and stiff, his low back, and his right lower leg. He had no loss of consciousness, he has developed no headache, nausea or vomiting, vision change, or focal neurologic symptom. He is on a apixaban because of A. fib. His main reason for coming in is that he is really having trouble bearing weight because of the pain in his right lower leg laterally when he does so. He has been using a cane to help get him around, which he usually does not require. [facility] Medical History (Updated 11/24/21 @ 06:[address] Gurjit Mensah MD) Allergic rhinitis Atrial flutter Colon polyp Essential hypertension Gout Hyperlipidemia Home Medications multivitamin 1 ea PO DAILY 03/10/18 [History Last Taken 04/16/18] colchicine 0.6 mg tablet 0.6 mg PO .COMPLEX PRN 05/14/18 [History Last Taken Unknown] allopurinol 300 mg PO DAILY 10/14/20 [History Last Taken Unknown] apixaban 5 mg tablet 5 mg PO BID #60 tab 10/26/20 [Rx Last Taken Unknown] diltiazem HCl 120 mg capsule,extended release 24 hr 120 mg PO DAILY #30 cap 12/01/20 [Rx Last Taken Unknown] Allergy/AdvReac Type Severity Reaction Status Date / Time Pzyxfal-YRD-LjQ Reductase AdvReac muscle Verified 11/24/21 04:47 Inhibitor cramps [Renvihx-Vpc-Zcs Reductase Inhibitor] Family History Father CAD (coronary artery disease) Mi w/ Coronary stent 12/2017 age 84 Myocardial infarction Brother Myocardial infarction age 55 coronary stents x 3 CAD (coronary artery disease) [place], coronary stent, CHF Surgical History History of cardiac radiofrequency ablation (~08/25/18) Hx of cholecystectomy Social History Smoking Status: Never smoker alcohol intake: current alcohol intake frequency: holidays/special occasions only substance use type: does not use caffeine: No ROS ROS ED Constitutional Constitutional ED: Denies chills or fever(s) Eyes Eyes: Denies change in vision or diplopia ENT ENT ED: Denies rhinorrhea or sore throat Cardiovascular Cardiovascular: Denies chest pain or palpitations Respiratory/Chest Respiratory/Chest: Denies cough or dyspnea Gastrointestinal Gastrointestinal: Denies abdominal pain, diarrhea, nausea or vomiting Genitourinary Genitourinary ED: Denies dysuria or hematuria Musculoskeletal Musculoskeletal: Reports as per HPI, back pain, extremity pain and neck pain Integumentary Denies abscess or rash Neurologic Neurologic: Denies headache(s), paresthesias or weakness Psychiatric Psychiatric: Denies anxiety or suicidal thoughts EXAM Physical Exam Const Vital Signs: 11/24/21 04:42 Temperature 96.8 F L Temperature Source Temporal Pulse Rate 58 L Respiratory Rate 15 Blood Pressure 160/85 H Blood Pressure Mean 110 Pulse Ox 96 Oxygen Delivery Method Room Air Positive well nourished and well developed General Appearance ED: well developed and NAD HEENT Reports moist mucous membranes normocephalic and atraumatic Eyes PERRL and EOMs intact bilaterally Neck full ROM and supple Chest Wall inspection of chest normal Chest Narrative: Nontender including lateral compression of rib cage. Sternum nontender. Resp normal respiratory effort and clear to auscultation bilaterally GI non-tender and non-distended Auscultation: normoactive bowel sounds Palpation: soft Back/Spine no CVA tenderness General Back: other FROM Extremity normal to inspection Extremity Narrative: Aging ecchymosis throughout right lateral thigh/hip, from old fall without acute tenderness. Abrasion/superficial skin tear dorsum of left hand. Ecchymosis without bony tenderness posterior mid right upper arm. Superficial minor abrasion ulnar aspect of right wrist without tenderness. Abrasion distal right lateral lower leg. No bony tenderness from the right knee to the right ankle, however there is significant pain right mid lower leg laterally with trying to bear weight. Otherwise he has full range of motion of all joints of all 4 extremities including the knee and ankle of the right leg when not weightbearing. General Extremety ED: Negative for edema, pulses abnormal or tenderness General Extremity: Negative for edema or pulses abnormal Neuro oriented x3, CN's II-XII intact bilaterally and no sensory deficits noted Sensorium / Orientation: awake and alert Motor Exam: strength 5/5 throughout Skin no rashes or lesions noted Skin Narrative: Abrasions/skin tear, see above. MDM MDM MDM Narrative Medical decision making narrative: I obtained a CT of his head which was negative for any acute injury, as well as an x-ray of his right lower leg, it is also negative. He has no instability of either the knee or the ankle. I reassured him, I do not think he needs x-rays of any of the other areas, both of his hips move without any discomfort or pain. He will be offered analgesics, and we discussed first-aid for his wounds which were cleansed and dressed with antibiotic ointment. Radiography Diagnostic Testing: Clinical Impression(s) from Imaging Studies Brain CT 11/24/21 04:58 IMPRESSION: No acute intracranial abnormality. Electronically Signed: Ruben Conroy MD at 5:51 EST , Tibia/Fibula X-Ray 11/24/21 05:25 IMPRESSION: Normal x-ray examination of the tibia and fibula. Electronically Signed: Ruben Conroy MD at 5:53 EST , Discharge Plan Triage Chief Complaint: Lower Extremity Injury ED Provider: Gurjit Mensah Dx/Rx/DC Orders Clinical Impression: Closed head injury without loss of consciousness, Contusion of multiple sites, Abrasion, multiple sites, Skin tear of left hand without complication, Fall from stool Instructions: Bruises (Contusions), ED Head Injury (Adult) Prescriptions: No Action multivitamin 1 EACH tablet 1 ea PO DAILY RF: 0 allopurinol 300 MG tablet 300 mg PO DAILY RF: 0 colchicine 0.6 mg tablet 0.6 mg PO .COMPLEX PRN (Reason: gout) RF: 0 Eliquis 5 mg tablet 5 mg PO BID Qty: 60 RF: 11 diltiazem HCl 120 mg capsule,extended release 24hr 120 mg PO DAILY Qty: 30 RF: 11 Primary Care Provider: Gurpreet Kirby Referrals: Gurpreet Kirby DO [Primary Care Provider] - As Needed Disposition Disposition: Home, Self Care
--- NOTE | 2021-11-24 05:25 | RAD_ITS ---
STUDY: X-RAY - RIGHT TIBIA AND FIBULA REASON FOR EXAM: Male, 65 years old. injury TECHNIQUE: 2 view(s) of the tibia and fibula were obtained. COMPARISON: None. FINDINGS: Normal visualized tibia. Normal visualized fibula. The soft tissue structures are unremarkable. RAD/Tibia & Fibula 2 Views IMPRESSION: Normal x-ray examination of the tibia and fibula. Electronically Signed: Ruben Conroy MD at 5:53 EST ,
[2021-11-24] MEDS: Acetaminophen 500 MG Tablet 1000 MG PO (06:13)
[2021-11-24 06:18] VITALS: BP 127/68; PULSE 56; RESP 16; O2SAT 95
== END 2021-11-24 06:18 | disposition home or self-care (01) ==
PROVIDERS: Emergency Provider Emergency Medicine; PCP Family Medicine; Visit Provider Emergency Medicine
DX: S09.90XA Unspecified injury of head, initial encounter (principal); I48.91 Unspecified atrial fibrillation; S61.412A Laceration without foreign body of left hand, initial encounter; S40.021A Contusion of right upper arm, initial encounter; M43.6 Torticollis; S60.811A Abrasion of right wrist, initial encounter; S80.811A Abrasion, right lower leg, initial encounter; W08.XXXA Fall from other furniture, initial encounter; I10 Essential (primary) hypertension; E78.5 Hyperlipidemia, unspecified; M10.9 Gout, unspecified; Z79.899 Other long term (current) drug therapy; Z79.01 Long term (current) use of anticoagulants
CPT/HCPCS: 70450; 73590; 99283

== ENCOUNTER 2021-12-06 06:45 | Emergency (ER) | payer MEDICARE, SELFPAY ==
[2021-12-06 06:46] VITALS: BP 184/105; PULSE 100; RESP 21; TEMP 36.1; O2SAT 97; BMI 29.5
--- NOTE | 2021-12-06 07:08 | EKG12_ITS ---
Test Reason : PALPS Blood Pressure : / mmHG Vent. Rate : 087 BPM Atrial Rate : 277 BPM P-R Int : 000 ms QRS Dur : 096 ms QT Int : 368 ms P-R-T Axes : 000 -01 016 degrees QTc Int : 442 ms Atrial fibrillation Inferior infarct , age undetermined Abnormal ECG Confirmed by DICK WOODSON, MARGARITO ([id number]), continuity editor QUTIA TURNER ([id number]) on 12/10/2021 9:49:16 AM Referred By: SALUD Confirmed By:ELIZABETH JENNINGS MD
--- NOTE | 2021-12-06 07:08 | RAD_ITS ---
STUDY: X-RAY CHEST REASON FOR EXAM: Male, 65 years old. chest pain TECHNIQUE: Single AP portable view of the chest. COMPARISON: 10/14/2020 FINDINGS: EKG leads project over the chest. The lungs are clear and expanded. There is no demonstrated pleural abnormality. Normal size heart. Normal mediastinum and elisabeth. Normal visualized pulmonary arteries. There is atherosclerotic tortuosity of the aortic arch and descending thoracic aorta. Normal visualized thoracic spine. Normal visualized ribs, clavicles, and shoulders. There is no demonstrated abnormality of the visualized soft tissue structures of the upper abdomen. RAD/Chest 1 View (Portable) IMPRESSION: Nonacute x-ray examination of the chest. Electronically Signed: Larry Cross MD (Brooks) at 7:56 EDT ,
--- NOTE | 2021-12-06 07:09 | EDS_ITS ---
HPI History of Present Illness Chief Complaint: Palpitations Narrative Narrative: Daylin is with his because of heart palpitations/irregular heartbeat that he has had since 10 PM last evening. This was almost 9 hours ago. He relates history that he had atrial flutter in the past and had ablation performed. For almost a year he did not really have any problems but the atrial fibrillation started to appear. He states he had to be cardioverted during the ablation but has never had to have it performed as an outpatient or in the emergency department. He takes diltiazem and apixaban. He has not missed any doses of his blood thinner. He denies any chest pain or shortness of breath. No nausea or vomiting. No other symptoms except for he can feel his irregular heartbeat that started last evening. He denies any leg swelling or any other symptoms. No exacerbating or alleviating factors. [facility] Medical History (Updated 12/06/21 @ 08:05 by Guevara Wan MD) Allergic rhinitis Atrial flutter Colon polyp Essential hypertension Gout Hyperlipidemia Home Medications multivitamin 1 ea PO DAILY 03/10/18 [History Last Taken 04/16/18] colchicine 0.6 mg tablet 0.6 mg PO .COMPLEX PRN 05/14/18 [History Last Taken Unknown] apixaban 5 mg tablet 5 mg PO BID #60 tab 10/26/20 [Rx Last Taken Unknown] diltiazem HCl 120 mg capsule,extended release 24 hr 120 mg PO DAILY #30 cap 12/01/20 [Rx Last Taken Unknown] Allergy/AdvReac Type Severity Reaction Status Date / Time Jvmhqqz-BZH-UhZ Reductase AdvReac muscle Verified 12/06/21 06:49 Inhibitor cramps [Hjseiel-Czj-Skv Reductase Inhibitor] Family History Father CAD (coronary artery disease) Mi w/ Coronary stent 12/2017 age 84 Myocardial infarction Brother Myocardial infarction age 55 coronary stents x 3 CAD (coronary artery disease) [place], coronary stent, CHF Surgical History History of cardiac radiofrequency ablation (~08/25/18) Hx of cholecystectomy Social History Smoking Status: Never smoker alcohol intake: current alcohol intake frequency: holidays/special occasions only substance use type: does not use caffeine: No ROS ROS ED ROS Narrative Constitutional: No fever, no chills. HEENT: No sore throat. No neck pain. No loss of vision. No rhinorrhea. Cardiovascular: No chest pain. Positive irregular heartbeat/palpitations. No pedal edema. Respiratory: No cough, no shortness of breath. Abdominal: No abdominal pain. No nausea. No vomiting. Genitourinary: No dysuria. No hematuria. Musculoskeletal: No myalgias. No arthralgias. Neurologic: No headaches. No dizziness. No lightheadedness. Skin: No rash. No change in color. Psychiatric: No depression. No anxiety. EXAM Physical Exam Narrative Exam Narrative: Afebrile. Vital signs noted. HEENT: Normocephalic. Atraumatic. PERRL, EOMI. Neck soft and supple. No point tenderness or step off. Cardiovascular: Irregularly irregular rhythm with intermittent tachycardia as high as 117, no murmurs, rubs, or gallops appreciated. Respiratory: No tachypnea. Lungs clear to auscultation bilaterally. Gastrointestinal: Abdomen soft, nontender, with normoactive bowel sounds. No rebound or guarding. Neurological: Awake. Alert. Nonfocal, nonlateralizing. Skin: No rash. Normal color. No pallor. Musculoskeletal: No pedal edema. Full range of motion extremities. Const Vital Signs: 12/06/21 06:46 12/06/21 06:49 Temperature 97 F L Temperature Source Temporal Pulse Rate 100 Respiratory Rate 21 H Respiratory Effort Normal Respiratory Pattern Normal Blood Pressure 184/105 H Blood Pressure Mean 131 Pulse Ox 97 Oxygen Delivery Method Room Air MDM MDM MDM Narrative Medical decision making narrative: I discussed with the patient and his the general work-up. He is not having any chest pain. Hence, I do not feel that a heart score is indicated. His atrial fibrillation is paroxysmal. Currently he has an elevated blood pressure which has normalized to the 130 systolic. His pulse rate ranges. He states he already took his diltiazem this morning. He will be given a dose of intravenous Cardizem 10 mg. He states the last time he was in the emergency department he spontaneously cardioverted after medication. I will check a CBC, BMP, and a troponin, along with a chest x-ray. CBC is grossly normal with a normal white blood cell count, normal hemoglobin of 16.4, platelet count of 260. His electrolyte panel is grossly unremarkable. Calcium normal at 9.4, high-sensitivity troponin is normal at 10. This is a 6- hour troponin. Chest x-ray interpreted by myself shows no acute process, no infiltrate or pneumothorax. Upon repeat examination, after his 10 mg of Cardizem intravenously, he states he feels less of his irregular heartbeat, and his heart rate is in the 80s to 90s but still appears irregular on the monitor. His blood pressure once again is 130 systolic. I feel that as he is rate controlled and he is hemodynamically stable, that he can follow-up with cardiology. I will discuss patient with Dr. Aguilar for Dr. Campos. He agrees with outpatient follow-up and discharged today. Return instructions were reviewed. Disposition is discharged home in stable condition. Lab Data Attestation: I reviewed the patient's lab results. Labs: Laboratory Results - last 24 hr 12/06/21 12/06/21 07:25 07:25 WBC 6.1 RBC 5.08 Hgb 16.4 Hct 46.2 MCV 90.9 MCH 32.3 H MCHC 35.5 RDW Std Deviation 40.5 RDW Coeff of Berkley 12.3 Plt Count 260 MPV 11.0 Immature Gran % (Auto) 0.300 Neut % (Auto) 60.6 Lymph % (Auto) 21.9 Lane % (Auto) 11.9 H Eos % (Auto) 4.6 Baso % (Auto) 0.7 Absolute Neuts (auto) 3.7 Absolute Lymphs (auto) 1.34 Nucleated RBC % 0 Sodium 138 Potassium 4.2 Chloride 105 Carbon Dioxide 28.0 Anion Gap 5 BUN 17 Creatinine 1.02 Estim Creat Clear Calc 79.42 Est GFR (MDRD) Af Amer 93 Est GFR (MDRD) Non-Af 77 BUN/Creatinine Ratio 16.7 Glucose 104 Calcium 9.4 Troponin I High Sens 10 Radiography Diagnostic Testing: Clinical Impression(s) from Imaging Studies Chest X-Ray 12/06/21 07:08 IMPRESSION: Nonacute x-ray examination of the chest. Electronically Signed: Larry Cross MD (Brooks) at 7:56 EDT , Discharge Plan Triage Chief Complaint: Palpitations ED Provider: Guevara Wan Dx/Rx/DC Orders Clinical Impression: Paroxysmal atrial fibrillation Instructions: ED AFIB Prescriptions: No Action multivitamin 1 EACH tablet 1 ea PO DAILY RF: 0 colchicine 0.6 mg tablet 0.6 mg PO .COMPLEX PRN (Reason: gout) RF: 0 Eliquis 5 mg tablet 5 mg PO BID Qty: 60 RF: 11 diltiazem HCl 120 mg capsule,extended release 24hr 120 mg PO DAILY Qty: 30 RF: 11 Primary Care Provider: Gurpreet Kirby Referrals: Gurpreet Kirby DO [Primary Care Provider] - Vineet Campos MD [STAFF PHYSICIAN] - 3-5 Days if not improving Activity Restrictions/Additional Instructions: Call Dr. Campos's office today for follow-up appointment in the next few days. Disposition Disposition: Home, Self Care
[2021-12-06] MEDS: dilTIAZem 25 MG/5 ML Vial 10 MG IV BOLUS (07:32)
[2021-12-06 07:34] LABS: Absolute Lymphocyte Count 1.34 X10^3/uL (0.83-4.51); Absolute Neutrophil Count 3.7 X10^3/uL (2.0-7.7); Basophil# 0.04 X10^3/uL; Basophil% 0.7 % (0-1); Eosinophil# 0.28 X10^3/uL; Eosinophils% 4.6 % (0-5); Hematocrit 46.2 % (40-54); Hemoglobin 16.4 g/dL (13.0-16.5); Lymphocyte # 1.34 X10^3/ul (0.83-4.51); Lymphocyte % 21.9 % (19-41); Mean Corp Hgb Conc 35.5 g/dL (32-36); Mean Corpuscular Hgb 32.3 pg (27.0-32.0); Mean Corpuscular Volume 90.9 fL (80-94); Monocyte# 0.73 X10^3/uL; Monocyte% 11.9 % (0-10); NRBC Flagged by Analyzer 0 % (0-5); Neutrophil % 60.6 % (47-70); Platelet Count 260 K/mm3 (150-450); RBC Distribution Width CV 12.3 % (11.6-14.6); RBC Distribution Width SD 40.5 fl (35.1-43.9); Red Blood Count 5.08 M/mm3 (4.6-6.2); White Blood Count 6.1 K/mm3 (4.4-11.0)
[2021-12-06 07:53] LABS: Anion Gap 5 (5-15); BUN 17 mg/dL (7-18); BUN/Creat Ratio 16.7 RATIO (10-20); Calcium,Total 9.4 mg/dL (8.5-10.1); Chloride 105 mmol/L (98-107); Creatinine, Serum 1.02 mg/dL (0.70-1.30); EST Glomerular Filtration Rate 77 mL/min (>60); Est Glom Filt Rate - Afr Amer 93 mL/min (>60); Estimated Creatinine Clearance 79.42 ml/min; Glucose 104 mg/dL (74-106); Potassium 4.2 mmol/L (3.5-5.1); Sodium Level 138 mmol/L (136-145); Troponin-I HS 10 pg/mL (3.0-78.0)
[2021-12-06 08:17] VITALS: BP 128/68
[2021-12-06 08:33] VITALS: BP 122/71; PULSE 83
== END 2021-12-06 08:34 | disposition home or self-care (01) ==
PROVIDERS: Emergency Provider Emergency Medicine; PCP Family Medicine; Visit Provider Emergency Medicine
DX: I48.0 Paroxysmal atrial fibrillation (principal); I10 Essential (primary) hypertension; E78.5 Hyperlipidemia, unspecified; M10.9 Gout, unspecified; Z79.01 Long term (current) use of anticoagulants; Z79.899 Other long term (current) drug therapy
CPT/HCPCS: 71045; 80048; 84484; 85025; 93005; 96374; 99284; A4216

== ENCOUNTER → 2022-04-11 | Outpatient (CLI) | payer MEDICARE, SELFPAY ==
[2022-04-11 10:10] LABS: Absolute Lymphocyte Count 1.25 X10^3/uL (0.83-4.51); Absolute Neutrophil Count 4.7 X10^3/uL (2.0-7.7); Basophil# 0.03 X10^3/uL; Basophil% 0.4 % (0-1); Eosinophil# 0.31 X10^3/uL; Eosinophils% 4.4 % (0-5); Hemoglobin 15.4 g/dL (13.0-16.5); Lymphocyte # 1.25 X10^3/ul (0.83-4.51); Lymphocyte % 17.9 % (19-41); Mean Corp Hgb Conc 33.5 g/dL (32-36); Mean Corpuscular Hgb 31.2 pg (27.0-32.0); Mean Corpuscular Volume 93.1 fL (80-94); Mean Platelet Vol. 12.2 fl (6.2-12.0); Monocyte# 0.62 X10^3/uL; Monocyte% 8.9 % (0-10); NRBC Flagged by Analyzer 0 % (0-5); Neutrophil # 4.74 X10^3/uL (2.7-7.7); Neutrophil % 68.1 % (47-70); Platelet Count 205 K/mm3 (150-450); RBC Distribution Width CV 12.3 % (11.6-14.6); RBC Distribution Width SD 42.3 fl (35.1-43.9); Red Blood Count 4.94 M/mm3 (4.6-6.2)
[2022-04-11 10:39] LABS: ALB/GLOB Ratio 1.1 RATIO (0.9-2.4); AST(SGOT) 11 U/L (15-37); Alanine Aminotransfer ALT/SGPT 27 U/L (16-61); Albumin, Serum 3.6 g/dL (3.2-5.0); Alkaline Phosphatase 77 U/L (45-117); Anion Gap 6 (5-15); BUN 17 mg/dL (7-18); BUN/Creat Ratio 18.8 RATIO (10-20); Calcium,Total 8.8 mg/dL (8.5-10.1); Chloride 105 mmol/L (98-107); Cholesterol 220 mg/dL (200); EST Glomerular Filtration Rate 89 mL/min (>60); Est Glom Filt Rate - Afr Amer 107 mL/min (>60); Globulin 3.3 g/dL (2.2-4.2); Glucose 85 mg/dL (74-106); High Density Lipoprotein 47 mg/dL; PSA,Total - Annual Screen 2.32 ng/mL (0.00-4.00); Potassium 4.1 mmol/L (3.5-5.1); Protein, Total 6.9 g/dL (6.4-8.2); Sodium Level 138 mmol/L (136-145); Triglycerides 105 mg/dL; Very Low Density Lipoprotein 21 mg/dL (5-40)
[2022-04-11 10:52] LABS: Hemoglobin A1c 5.5 % (3.8-5.6)
== END | disposition home or self-care (01) ==
LOC: MTLAB 07:11
PROVIDERS: PCP Family Medicine; Referring Provider Family Medicine; Visit Provider Family Medicine
DX: I10 Essential (primary) hypertension (principal); E78.5 Hyperlipidemia, unspecified; E88.81 Metabolic syndrome and other insulin resistance; M10.9 Gout, unspecified; Z12.5 Encounter for screening for malignant neoplasm of prostate
CPT/HCPCS: 36415; 80053; 80061; 83036; 84153; 84550; 85025; G0103

== ENCOUNTER → 2022-08-06 | Outpatient (CLI) | payer MEDICARE, SELFPAY ==
--- NOTE | 2022-08-06 09:50 | CDU_ITS ---
Reason For Study: Sudden vision loss Rt. Velocities/BP Lt. Velocities/BP Prox CCA 104.7/15.1 cm/sec. Prox CCA 92.5/12.7 cm/sec. Mid CCA 92.5/12.6 cm/sec. Mid CCA 83.9/15.1 cm/sec. Dist CCA 76.5/13.9 cm/sec. Dist CCA 67.9/12.7 cm/sec. Prox ICA 56.9/12.6 cm/sec. Prox ICA 72.8/15.1 cm/sec. Mid ICA 90/26.2 cm/sec. Mid ICA 60.6/16.3 cm/sec. Dist ICA 77.7/22.5 cm/sec. Dist ICA 81.4/24.9 cm/sec. Rt. ICA/CCA = 0.97. Lt. ICA/CCA = 0.97. Prox ECA 83.9/6.5 cm/sec. Prox ECA 90/9 cm/sec. Rt. Vert. 36.9/7.2 cm/sec. Lt. Vert. 50.7/13.9 cm/sec. Right Extracranial There is intimal thickening but no significant atherosclerotic plaque noted in the right common carotid artery. There is homogeneous, smooth atherosclerotic plaque noted in the right internal carotid artery. There is homogeneous, smooth atherosclerotic plaque noted in the right external carotid artery. Antegrade flow is noted in the right vertebral artery. Left Extracranial There is homogeneous, smooth atherosclerotic plaque noted in the left common carotid artery. There is heterogeneous, irregular atherosclerotic plaque noted in the left internal carotid artery. There is intimal thickening but no significant atherosclerotic plaque noted in the left external carotid artery. Antegrade flow is noted in the left vertebral artery. Procedure Carotid Duplex 57162. This is a Carotid Duplex examination using B-mode, color flow and specral Doppler. Exam performed in department. VL/Carotid Duplex Ultrasound Interpretation Summary Smooth plaque at the proximal right internal carotid artery with a slightly jaspreet ply placed artery but less than 50% stenosis Less than 50% stenosis right external carotid artery Minimal irregular plaque at the proximal left internal carotid artery with less than 50% stenosis Less than 50% stenosis left external carotid artery Patent antegrade vertebral arteries bilaterally Ordering Physician: Tyron Pierre Referring Physician: Gurpreet Kirby Performed By: Jo-Ann Hassan RVT
== END | disposition home or self-care (01) ==
LOC: CVS 09:49
PROVIDERS: PCP Family Medicine; Visit Provider Ophthalmology
DX: I65.23 Occlusion and stenosis of bilateral carotid arteries (principal); H53.133 Sudden visual loss, bilateral
CPT/HCPCS: 93880

== ENCOUNTER → 2022-11-05 | Outpatient (CLI) | payer MEDICARE, SELFPAY ==
--- NOTE | 2022-11-05 07:52 | ECHOD_ITS ---
Reason For Study: Dilated AO Root Procedure This was a 2D Doppler, Color Flow transthoracic echocardiogram. The exam was of adequate technical quality. Exam performed in department. Left Ventricle Normal LV size. Left ventricular systolic function is normal. The estimated ejection fraction is 60 %. No evidence for diastolic dysfunction. No regional wall motion abnormalities noted. Right Ventricle Normal RV size. Normal systolic function. Atria Normal left atrium. Normal right atrium. No doppler evidence for ASD. Mitral Valve There is no mitral annular calcification. Normal mitral valve. Trivial mitral valve insufficiency. Tricuspid Valve Normal tricuspid valve. Trivial tricuspid valve insufficiency. Right ventricular systolic pressure estimated to be 33 mmHg. Aortic Valve Trisinus/trileaflet aortic valve. Normal aortic valve. Trivial aortic valve insufficiency. Pulmonic Valve The pulmonic valve is not well visualized. Trivial pulmonic valve insufficiency. Great Vessels Mildly dilated aortic root. Pericardium/Pleural No pericardial effusion. MMode/2D Measurements & Calculations LVIDd: 4.8 cm IVSd: 0.79 cm Ao root diam: 4.3 cm LVIDs: 3.1 cm LVPWd: 0.96 cm LA dimension: 4.0 cm RVDd: 3.9 cm FS: 35.7 % LAV(MOD-bp): 83.3 ml LA A4 area: 19.7 cm2 RA A4 area: 14.3 cm2 LAV(MOD-bp) Indexed: 37.0 ml/m2 LAV(MOD-sp2): 107.8 ml LAV(MOD-sp4): 58.6 ml Time Measurements MV dec time: 0.24 sec Doppler Measurements & Calculations MV E max bob: 72.4 cm/sec Lat Peak E' Bob: 9.6 cm/sec Med Peak E' Bob: 7.6 cm/sec MV A max bob: 86.3 cm/sec E/E' lat: 7.5 E/E' med: 9.5 MV E/A: 0.84 MV V2 max: 83.5 cm/sec MV P1/2t max bob: 62.5 cm/sec Ao V2 max: 113.1 cm/sec MV max P.8 mmHg MV P1/2t: 69.2 msec Ao max P.1 mmHg MV V2 mean: 39.1 cm/sec MV dec slope: 264.6 cm/sec2 Ao V2 mean: 78.5 cm/sec MV mean P.73 mmHg MVA(P1/2t): 3.2 cm2 Ao mean P.8 mmHg MV V2 VTI: 32.1 cm Ao V2 VTI: 29.6 cm AV (velocity ratio): 0.96 AI max bob: 335.9 cm/sec LV V1 max: 106.0 cm/sec PA V2 max: 86.2 cm/sec AI max P.2 mmHg LV V1 max P.5 mmHg LV V1 mean P.4 mmHg AI dec slope: 204.5 cm/sec2 LV V1 mean: 73.0 cm/sec AI P1/2t: 481.1 msec LV V1 VTI: 28.3 cm TR max bob: 272.7 cm/sec TR max P.7 mmHg ECHO/Echo Complete Interpretation Summary Left ventricular systolic function is normal. The estimated ejection fraction is 60 %. Trivial mitral valve insufficiency. Trivial tricuspid valve insufficiency. Trivial aortic valve insufficiency. Trivial pulmonic valve insufficiency. Mildly dilated aortic root. Right ventricular systolic pressure estimated to be 33 mmHg. No evidence for diastolic dysfunction. Ordering Physician: Vineet Campos Performed By: Eulogio Lopez RCS
== END | disposition home or self-care (01) ==
LOC: CVS 07:51
PROVIDERS: PCP Family Medicine; Visit Provider Internal Medicine Cardiovascular Disease
DX: Z12.11 Encounter for screening for malignant neoplasm of colon (principal); I77.810 Thoracic aortic ectasia
CPT/HCPCS: 93306

== ENCOUNTER → 2022-12-25 | Outpatient (CLI) | payer MEDICARE, SELFPAY ==
--- NOTE | 2022-12-25 13:36 | CT_ITS ---
STUDY: CT SOFT TISSUE NECK WITH CONTRAST REASON FOR EXAM: Male, 66 years old. PHARYNGEAL MASS FOUND ON SCOPE AT ENT RADIATION DOSAGE (If Supplied By Facility): CTDIvol = ( 18.81 ) mGy, DLP = ( 662.52 ) mGycm TECHNIQUE: The patient was scanned in a multi-detector CT scanner. High resolution transaxial imaging was performed following intravenous administration of IV 75mL Isovue-370. Sagittal and coronal images were reconstructed. Individualized dose optimization techniques were used for this CT. COMPARISON: None. FINDINGS: There is prominence of the carotid bifurcations bilaterally more prominent on the right side with the indentation of the right parapharyngeal area. No obvious soft tissue mass is seen in the right side of the pharynx. Normal bilateral parotid glands. Normal bilateral digital developer spaces. Normal bilateral parapharyngeal spaces. Normal bilateral carotid spaces. Normal bilateral sublingual and submandibular glands and spaces. Normal visualized nasopharynx. Normal retropharyngeal space. Normal perivertebral space. Normal visualized bilateral faucial tonsils. The visualized tongue, tongue base and oropharynx are normal. The visualized cervical lymph nodes (levels I-) are within normal size limits, and maintain normal morphology. There is no demonstrated solid or cystic mass lesion. There is no abnormal contrast enhancement. Normal epiglottis, bilateral vallecula and hypopharynx. The pre-epiglottic and paraglottic adipose spaces are normal. Normal visualized bilateral piriform sinuses, aryepiglottic folds, vocal cords, and arytenoid-cricoid articulations. Normal subglottic trachea. Normal bilateral lobes of the thyroid gland. Normal visualized pulmonary apices. Partial opacification of the left sphenoid sinus as well as the ethmoid sinuses. The maxillary sinuses are hypoplastic. There is multilevel degenerative changes of the cervical spine. CT/Soft Tissue Neck WITH Contrast IMPRESSION: No definite mass lesion is seen. Prominence of the carotid bifurcations bilaterally worse on the right side causing indentation of the right pharyngeal wall. Electronically Signed: Jg Jonas MD at 15:28 EDT ,
[2022-12-25 14:31] LABS: EGFR FINGERSTICK > 60.0000 mL/min (>60)
== END | disposition home or self-care (01) ==
LOC: CT 13:35
PROVIDERS: PCP Family Medicine; Referring Provider Otolaryngology; Visit Provider Otolaryngology
DX: R22.1 Localized swelling, mass and lump, neck (principal)
CPT/HCPCS: 70491; Q9967

== ENCOUNTER 2023-03-24 07:17 | Day surgery (SDC) | payer MEDICARE, SELFPAY ==
[2023-03-24] VITALS (7 sets, daily range): BP systolic 116–139; BP diastolic 67–72; PULSE 50–60; RESP 16–18; TEMP 36.3–36.8; O2SAT 94–98; BMI 28.5
--- NOTE | 2023-03-24 | COLBX_PTH ---
PATIENT: ANGEL CAMPO LOC: EN U#:[id number] AGE/SX: 67/M ROOM: RE03/24/[address]: Dr. Norberto Clark MD : 1955 BED: DIS: 03/24/2023 SPEC #: [id number] RECD: 03/24/23 13:00 STATUS: DYANA HARTMANXiang #: [id number] [place]: 03/24/23 00:[address]: Norberto Clark DEPT: SURGICAL PATHOLOGY RECD BY: Ambrosio Virgen ENTERED: 03/24/23 13:00 SP TYPE: COLON BX OTHR DR: Dr. Gurpreet Kirby DO Tissues: Transverse colon Procedures: Surgery Specimen Level IV HEADER OPERATION: Colonoscopy - open access (MAC), polypectomy PRE-OP DIAGNOSIS: History of colon polyps TISSUE SUBMITTED: Transverse colon polyps MICROSCOPIC DIAGNOSIS Transverse colon polyp, polypectomy: Tubular adenoma. SJ:stefany 03/26/2023 MICROSCOPIC DESCRIPTION Slides are reviewed. GROSS DESCRIPTION Received in fixative is one container labeled with the patient's name and designated transverse colon polyp. The specimen consists of two irregular fragments of light perera soft tissue that in aggregate measure 0.5 x 0.3 x 0.1 cm. The specimen is totally submitted in one cassette. / SJ:stefany 03/24/2023 TC:1 CPT: 46792
[2023-03-24] MEDS: Lactated Ringers 1,000 ML 15 ML IV (07:55)
--- NOTE | 2023-03-24 08:21 | HP.PCM_ITS ---
HPI - General HPI Narrative ANGEL CAMPO, is a 67 M who presents for follow-up colonoscopy. The patient had polyps 5 years ago. Patient denies abdominal pain or blood in the stool. Patient is holding his blood thinner for 5 days. [facility] Medical History (Updated 03/24/23 @ 08:[address] Norberto Clark MD) Alcohol use Allergic rhinitis Atrial flutter Cardiology follow-up encounter Colon polyp CPAP (continuous positive airway pressure) dependence Essential hypertension Gout History of echocardiogram History of stress test Hx of adenomatous colonic polyps Hyperlipidemia Non-smoker Wears hearing aid Home Medications multivitamin 1 ea PO DAILY supplement 03/10/18 [History Last Taken 04/16/18] apixaban 5 mg tablet (Eliquis) 5 mg PO BID #60 tabs 10/26/20 [Rx Last Taken 03/19/23] diltiazem HCl 120 mg capsule,extended release 24 hr 120 mg PO BID Dose increased #60 caps 11/18/22 [Rx Last Taken 03/24/23] Allergy/AdvReac Type Severity Reaction Status Date / Time lisinopril AdvReac Intermediate Dry Verified 03/24/23 07:31 hacking cough losartan AdvReac Intermediate Paradoxical Verified 03/24/23 07:31 hypertension Uyjykcl-ZXF-EuB Reductase AdvReac muscle Verified 03/24/23 07:31 Inhibitor cramps [Jjzashz-Tbi-Hvx Reductase Inhibitor] Family History Father CAD (coronary artery disease) Mi w/ Coronary stent 12/2017 age 84 Myocardial infarction Brother Myocardial infarction age 55 coronary stents x 3 CAD (coronary artery disease) [place], coronary stent, CHF Surgical History (Updated 03/20/23 @ 11:01 by Zaria Burroughs) History of cardiac radiofrequency ablation (~08/25/18) History of colonoscopy Hx of cholecystectomy Social History Smoking Status: Never smoker alcohol intake: current alcohol intake frequency: holidays/special occasions only substance use type: does not use caffeine: No Past Medical/Surgical History Planned Operation Planned Operative Procedure/s: CSCOPE OA S.O.S: No Previous Hospitalizations/Surgeries HX Hospitalizations: No HX of Surgeries: gallbladder colonoscopy x2 Any Problems With Anesthesia: No You/Your Family Experience Fever (Hyperthermia) With Anes: No Cholinesterase deficiency: No Cardiovascular Hx Chest Pain within Last 2 months: No Hx of Irregular Heartbeat and/or Afib: No Hx Heart Attack: No Hx Congestive Heart Failure: No Hx Rheumatic Fever: No Hx Hypertension: Yes (NO MED FOR 6 MONTHS) Hx Internal Defibrillator: No Hx Pacemaker: No Hx Cardiac Catheterization: No Hx Cardiac Surgery/Stents/Etc.: No Hx Stress Test: No Hx Pain in Legs when Walking/Leg Cramps: No Respiratory Chronic Cough: No HX of Shortness of Breath: No Hoarseness: No Hx Chronic Obstructive Pulmonary Disease (COPD): No Hx Asthma: No Hx Emphysema: No Hx Sleep Apnea: Yes CPAP: Yes (NONCOMPLIANT/LOST WEIGHT) BIPAP: No Hx Respiratory Tract Infection/Cold (presently): No Do You Snore Loudly (louder than talking or can be heard): No Do You Often Feel Tired/ Fatigued/ Sleepy Dring Daytime?: No Has Anyone Observed You Stop Breathing During Sleep?: No Result (for STOP score): Positive Hx Smoking: No Smoking Status: Never smoker Gastrointestinal Hx Gastroesophageal Reflux: No Hx Gastrointestinal Disorders: No Hx Gastrointestinal Bleed: No Hx Ulcer: No Hx Hiatal Hernia: No Difficulty Chewing/Swallowing: No Special diet followed at home: No Hx Unplanned Weight Loss of 20#: No HX Unplanned Weight Gain of 20#: No Neurological Hx Seizures: No HX Syncope/Blackout Spells/Unconsciousness: No Hx Transient Ischemic Attacks (TIA): No Hx Multiple Sclerosis: No Hx Parkinson's Disease: No Hx Head/Neck Injury: No Hx Headaches: No Hx Back Injury/Pain: No Recent Onset of Speech Difficulty: No Restless Legs: No Does patient have nerve stimulator: No Blood Disorder Hx Leukemia: No Bleeding Tendencies: No Hx Deep Vein Thrombosis: No Hx High Cholesterol: Yes (no meds) Blood Transmitted Disease: No Hx Hepatitis: No Hx Cirrhosis: No Hx Anemia: No Hx Blood Disorders: No Reproduction : No Genitourinary Hx Renal Disease: No Hx Dialysis: No Musculoskeletal Hx Arthritis: No Hx Rheumatoid Arthritis: No Hx Gout: Yes (in the past) Recent Onset of an Orthopedic Problem: No Endocrine Hx Diabetes: No Thyroid Disease: No Hx Steroid Therapy: No Psycho/Social Hx Substance Use: No Hx Alcohol Use: No Hx Anxiety: No Hx Depression: No Mental Illness: No Hx Dementia: No Miscellaneous Hx Cancer: No Recent Exposure to Contagious Disease: No Hx of C-Diff: No Any Loose Teeth: No Allergies lisinopril Adverse Reaction (Intermediate, Verified 03/24/23 07:31) Dry hacking cough losartan Adverse Reaction (Intermediate, Verified 03/24/23 07:31) Paradoxical hypertension Cjpakjo-LIA-NxU Reductase Inhibitor [Ryzwyku-Hgr-Wlw Reductase Inhibitor] Adverse Reaction (Verified 03/24/23 07:31) muscle cramps Maternal: Family History Father CAD (coronary artery disease) Myocardial infarction Brother Myocardial infarction CAD (coronary artery disease) Cancer (melanoma) Sibling: Family History Father CAD (coronary artery disease) Myocardial infarction Brother Myocardial infarction CAD (coronary artery disease) Heart Disease Paternal: Family History Father CAD (coronary artery disease) Myocardial infarction Brother Myocardial infarction CAD (coronary artery disease) Cancer (esophageal) and Heart Disease Discharge Is Pt Admitted From a Senior Living, or a [place] [facility]: No After D/C, Where Do you Plan to Go: Return Home Vital Signs Vital Signs Vital Signs: 03/24/23 07:36 03/24/23 07:36 Temperature 97.4 F L Temperature Source Temporal Pulse Rate 60 Respiratory Rate 16 Respiratory Pattern Normal Blood Pressure 139/72 H Blood Pressure Mean 94 Blood Pressure Source Monitor Blood Pressure Position Sitting Blood Pressure Location Left Arm Pulse Ox 98 Oxygen Delivery Method Room Air Weight Weight: 216 lb Body Mass Index (BMI) 28.5 Physical Exam Const alert and oriented x3 HEENT normocephalic Eyes PERRL Resp normal respiratory effort and normal air movement Cardio regular rate and regular rhythm GI soft to palpation, non-tender and non-distended Extremity normal to inspection Assessment & Plan Assessment/Plan (1) History of colon polyps: PLAN: I explained endoscopy in detail to the patient. I explained the risks including but not limited to stroke or heart attack with anesthesia, perforation of the GI tract, bleeding, infection. I explained that any of these could necessitate further emergency surgery. The patient understands and all questions were answered sufficiently. The patient wishes to proceed with procedure. Norberto Clark MD Pager: [facility] [address] [place] [address], [address] [place] [address] Office: Surgery Risks - Colonoscopy Risks Include but are not Limited To: Risks include but are not limited to: Bleeding, perforation requiring further surgery, inability to complete colonoscopy requiring barium enema.
--- NOTE | 2023-03-24 08:49 | OP.COLON_ITS ---
Patient Name: Larry Justice Procedure Date: 03/24/2023 8:28 AM Date of : 1955 Age: 67 Procedure: Colonoscopy Indications: High risk colon cancer surveillance: Personal history of colonic polyps Providers: Norberto Clark MD Referring MD: Norberto Clark MD Medicines: Propofol per Anesthesia Patient Profile: This is a 67 year old male. Refer to note in patient chart for documentation of history and physical. Last Colonoscopy: 5 years ago. Complications: No immediate complications. Estimated blood loss: Minimal. Procedure: Pre-Anesthesia Assessment: - Prior to the procedure, a History and Physical was performed, and patient medications and allergies were reviewed. The patient's tolerance of previous anesthesia was also reviewed. The risks and benefits of the procedure and the sedation options and risks were discussed with the patient. All questions were answered, and informed consent was obtained. Prior Anticoagulants: The patient has taken Eliquis (apixaban), last dose was 5 days prior to procedure. After reviewing the risks and benefits, the patient was deemed in satisfactory condition to undergo the procedure. After I obtained informed consent, the scope was passed under direct vision. Throughout the procedure, the patient's blood pressure, pulse, and oxygen saturations were monitored continuously. The pediatric colonoscope was introduced through the anus and advanced to the cecum, identified by appendiceal orifice and ileocecal valve. The colonoscopy was performed without difficulty. The patient tolerated the procedure well. The quality of the bowel preparation was good. Scope In: 8:35:12 AM Scope Withdrawal Time 0 hours 4 minutes 30 seconds Scope Out: 8:46:05 AM Total Procedure Duration Time 0 hours 10 minutes 53 seconds Findings: A small polyp was found in the transverse colon. The polyp was removed with a hot snare. Resection and retrieval were complete. The exam was otherwise without abnormality on direct and retroflexion views. Impression: - One small polyp in the transverse colon, removed with a hot snare. Resected and retrieved. - The examination was otherwise normal on direct and retroflexion views. Recommendation: - Discharge patient to home. - Resume previous diet. - Continue present medications. - Resume Eliquis (apixaban) at prior dose tomorrow. - Repeat colonoscopy in 5 years for surveillance based on pathology results. Procedure Code(s): --- Professional --- 57608, Colonoscopy, flexible; with removal of tumor(s), polyp(s), or other lesion(s) by snare technique Diagnosis Code(s): --- Professional --- Z86.010, Personal history of colonic polyps D12.3, Benign neoplasm of transverse colon (hepatic flexure or splenic flexure) CPT copyright 2017 [employer]. All rights reserved. The codes documented in this report are preliminary and upon label coder review may be revised to meet current compliance requirements. Norberto Clark MD 03/24/2023 8:49:34 AM This report has been signed electronically. Number of Addenda: 0 Note Initiated On: 03/24/2023 8:28 AM
--- NOTE | 2023-03-24 08:50 | OP.CCLET_ITS ---
03/24/2023 Gurpreet Kirby [address] [place] [address] Re : Colonoscopy procedure for Larry Justice Dear Dr. Kirby This procedure was performed on Friday, March 24, 2023. My impressions and recommendations are as follows: Impressions : - One small polyp in the transverse colon, removed with a hot snare. Resected and retrieved. - The examination was otherwise normal on direct and retroflexion views. Recommendations : - Discharge patient to home. - Resume previous diet. - Continue present medications. - Resume Eliquis (apixaban) at prior dose tomorrow. - Repeat colonoscopy in 5 years for surveillance based on pathology results. My findings are described in the full procedure note, which is enclosed. If I can be of further assistance, please feel free to contact me at Doctor phone number(s): , Work: . Sincerely, Norberto Clark MD 03/24/2023 8:49:34 AM This report has been signed electronically.
== END 2023-03-24 09:26 | disposition home or self-care (01) ==
LOC: EN 07:19 → AC 07:20
PROVIDERS: PCP Family Medicine; Referring Provider Family Medicine; Visit Provider Surgery
PROC: 0DJD8ZZ Inspection of Lower Intestinal Tract, Via Natural or Artificial Opening Endoscopic (ICD-10-PCS; CPT 45378; principal; 2023-03-24 08:25)
DX: Z12.11 Encounter for screening for malignant neoplasm of colon (principal); I48.0 Paroxysmal atrial fibrillation; Z79.01 Long term (current) use of anticoagulants; I10 Essential (primary) hypertension; Z80.0 Family history of malignant neoplasm of digestive organs; Z86.010 Personal history of colon polyps; E78.5 Hyperlipidemia, unspecified; D12.3 Benign neoplasm of transverse colon; Z79.899 Other long term (current) drug therapy; Z90.49 Acquired absence of other specified parts of digestive tract
CPT/HCPCS: 45385; 88305; J7120; J2405

== ENCOUNTER → 2023-06-24 | Outpatient (CLI) | payer MEDICARE, SELFPAY ==
[2023-06-24 10:05] LABS: Absolute Lymphocyte Count 1.41 X10^3/uL (0.83-4.51); Basophil# 0.04 X10^3/uL; Basophil% 0.6 % (0-1); Eosinophils% 3.2 % (0-5); Hematocrit 46.7 % (40-54); Hemoglobin 15.2 g/dL (13.0-16.5); Lymphocyte # 1.41 X10^3/ul (0.83-4.51); Lymphocyte % 22.6 % (19-41); Mean Corp Hgb Conc 32.5 g/dL (32-36); Mean Corpuscular Hgb 30.9 pg (27.0-32.0); Mean Corpuscular Volume 94.9 fL (80-94); Mean Platelet Vol. 11.6 fl (6.2-12.0); Monocyte# 0.63 X10^3/uL; Monocyte% 10.1 % (0-10); NRBC Flagged by Analyzer 0 % (0-5); Neutrophil # 3.95 X10^3/uL (2.7-7.7); Neutrophil % 63.2 % (47-70); Platelet Count 209 K/mm3 (150-450); RBC Distribution Width CV 12.4 % (11.6-14.6); RBC Distribution Width SD 43.1 fl (35.1-43.9); Red Blood Count 4.92 M/mm3 (4.6-6.2); White Blood Count 6.3 K/mm3 (4.4-11.0)
[2023-06-24 10:38] LABS: ALB/GLOB Ratio 1.1 RATIO (0.9-2.4); AST(SGOT) 15 U/L (15-37); Alanine Aminotransfer ALT/SGPT 32 U/L (16-61); Albumin, Serum 3.7 g/dL (3.2-5.0); Alkaline Phosphatase 79 U/L (45-117); Anion Gap 6 (5-15); BUN 18 mg/dL (7-18); BUN/Creat Ratio 19.1 RATIO (10-20); Calcium,Total 8.9 mg/dL (8.5-10.1); Chloride 106 mmol/L (98-107); Cholesterol 231 mg/dL (200); Creatinine, Serum 0.94 mg/dL (0.70-1.30); EST Glomerular Filtration Rate 84 mL/min (>60); Est Glom Filt Rate - Afr Amer 102 mL/min (>60); Globulin 3.4 g/dL (2.2-4.2); Glucose 93 mg/dL (74-106); High Density Lipoprotein 47 mg/dL; PSA,Total - Annual Screen 2.68 ng/mL (0.00-4.00); Potassium 4.1 mmol/L (3.5-5.1); Protein, Total 7.1 g/dL (6.4-8.2); Sodium Level 137 mmol/L (136-145); Triglycerides 135 mg/dL; Very Low Density Lipoprotein 27 mg/dL (5-40)
[2023-06-24 11:15] LABS: Hemoglobin A1c 5.3 % (3.8-5.6)
== END | disposition home or self-care (01) ==
LOC: MTLAB 07:31
PROVIDERS: PCP Family Medicine; Referring Provider Family Medicine; Visit Provider Family Medicine
DX: I10 Essential (primary) hypertension (principal); E78.5 Hyperlipidemia, unspecified; R73.01 Impaired fasting glucose; M10.9 Gout, unspecified; Z12.5 Encounter for screening for malignant neoplasm of prostate
CPT/HCPCS: 36415; 80053; 80061; 83036; 84153; 85025; G0103

== ENCOUNTER → 2024-05-07 | Outpatient (CLI) | payer MEDICARE, SELFPAY ==
[2024-05-07 12:28] LABS: Anion Gap 4 (5-15); BUN 14 mg/dL (7-18); BUN/Creat Ratio 14.9 RATIO (10-20); Calcium,Total 9.1 mg/dL (8.5-10.1); Chloride 104 mmol/L (98-107); Creatinine, Serum 0.94 mg/dL (0.70-1.30); EST Glomerular Filtration Rate 84 mL/min (>60); Est Glom Filt Rate - Afr Amer 102 mL/min (>60); Glucose 77 mg/dL (74-106); Sodium Level 137 mmol/L (136-145); Uric Acid 6.1 mg/dL (3.5-7.2)
== END | disposition home or self-care (01) ==
LOC: MTLAB 09:38
PROVIDERS: PCP Family Medicine; Referring Provider Family Medicine; Visit Provider Family Medicine
DX: M10.9 Gout, unspecified (principal); Z51.81 Encounter for therapeutic drug level monitoring
CPT/HCPCS: 36415; 80048; 84550

== ENCOUNTER → 2024-06-29 | Outpatient (CLI) | payer MEDICARE, SELFPAY ==
[2024-06-29 10:28] LABS: Absolute Lymphocyte Count 1.35 X10^3/uL (0.83-4.51); Absolute Neutrophil Count 5.7 X10^3/uL (2.0-7.7); Basophil# 0.03 X10^3/uL; Basophil% 0.4 % (0-1); Eosinophil# 0.13 X10^3/uL; Eosinophils% 1.6 % (0-5); Hematocrit 46.6 % (40-54); Hemoglobin 15.2 g/dL (13.0-16.5); Lymphocyte # 1.35 X10^3/ul (0.83-4.51); Lymphocyte % 16.7 % (19-41); Mean Corp Hgb Conc 32.6 g/dL (32-36); Mean Corpuscular Hgb 30.9 pg (27.0-32.0); Mean Corpuscular Volume 94.7 fL (80-94); Mean Platelet Vol. 12.1 fl (6.2-12.0); Monocyte# 0.85 X10^3/uL; Monocyte% 10.5 % (0-10); NRBC Flagged by Analyzer 0 % (0-5); Neutrophil # 5.69 X10^3/uL (2.7-7.7); Neutrophil % 70.3 % (47-70); Platelet Count 182 K/mm3 (150-450); RBC Distribution Width CV 12.7 % (11.6-14.6); Red Blood Count 4.92 M/mm3 (4.6-6.2); White Blood Count 8.1 K/mm3 (4.4-11.0)
[2024-06-29 11:07] LABS: AST(SGOT) 29 U/L (15-37); Alanine Aminotransfer ALT/SGPT 39 U/L (16-61); Albumin, Serum 3.5 g/dL (3.2-5.0); Alkaline Phosphatase 80 U/L (45-117); Cholesterol 240 mg/dL (200); Globulin 3.6 g/dL (2.2-4.2); High Density Lipoprotein 51 mg/dL; PSA,Total - Annual Screen 3.03 ng/mL (0.00-4.00); Protein, Total 7.1 g/dL (6.4-8.2); Triglycerides 134 mg/dL; Very Low Density Lipoprotein 27 mg/dL (5-40)
== END | disposition home or self-care (01) ==
LOC: MTLAB 07:01
PROVIDERS: PCP Family Medicine; Referring Provider Family Medicine; Visit Provider Family Medicine
DX: Z12.5 Encounter for screening for malignant neoplasm of prostate (principal); I10 Essential (primary) hypertension; E78.5 Hyperlipidemia, unspecified
CPT/HCPCS: 36415; 80061; 80076; 84153; 85025; G0103

== ENCOUNTER → 2024-08-04 | Outpatient (CLI) | payer MEDICARE, SELFPAY | END | disposition home or self-care (01) | LOC: CVS 06:02 | PROVIDERS: PCP Family Medicine; Referring Provider Internal Medicine Cardiovascular Disease; Visit Provider Internal Medicine Cardiovascular Disease | DX: M10.9 Gout, unspecified (principal); R94.31 Abnormal electrocardiogram [ECG] [EKG] | CPT/HCPCS: 78452; 93017; A9500; A4216; J2785 ==

== ENCOUNTER → 2025-07-06 | Outpatient (CLI) | payer MEDICARE, SELFPAY ==
[2025-07-06 07:02] LABS: Hematocrit 47.3 % (40-54); Hemoglobin 16.0 g/dL (13.0-16.5); Immature Granulocytes Count 0.030 X10^3/uL (0.0-0.0); Mean Corp Hgb Conc 33.8 g/dL (32-36); Mean Corpuscular Volume 92.0 fL (80-94); Mean Platelet Vol. 11.2 fl (6.2-12.0); NRBC Flagged by Analyzer 0 % (0-5); Platelet Count 252 K/mm3 (150-450); RBC Distribution Width CV 12.4 % (11.6-14.6); RBC Distribution Width SD 42.0 fl (35.1-43.9); Red Blood Count 5.14 M/mm3 (4.6-6.2); White Blood Count 7.5 K/mm3 (4.4-11.0)
[2025-07-06 07:43] LABS: AST(SGOT) 24 U/L (<=37); Alanine Aminotransfer ALT/SGPT 27 U/L (<=46); Albumin, Serum 4.4 g/dL (3.4-4.8); Alkaline Phosphatase 84 U/L (40-129); Anion Gap 11 (5-15); BUN 18 mg/dL (4-19); BUN/Creat Ratio 18.3 RATIO (10-20); Calcium,Total 9.9 mg/dL (7.6-11.0); Carbon Dioxide 26.5 mmol/L (21.0-32.0); Chloride 101 mmol/L (98-108); Cholesterol 248 mg/dL (<=200); Globulin 2.9 g/dL (2.2-4.2); Glucose 98 mg/dL (70-99); Low Density Lipoprotein Calc. 169 mg/dL; PSA,Total - Annual Screen 3.96 ng/mL (0.02-4.00); Potassium 4.5 mmol/L (3.3-5.1); Triglycerides 158 mg/dL; Very Low Density Lipoprotein 32 mg/dL (5-40); cholesterol:hdl ratio screen 5.20
== END | disposition home or self-care (01) ==
LOC: LAB 06:07
PROVIDERS: PCP Family Medicine; Referring Provider Family Medicine; Visit Provider Family Medicine
DX: I10 Essential (primary) hypertension (principal); E78.5 Hyperlipidemia, unspecified; Z12.5 Encounter for screening for malignant neoplasm of prostate
CPT/HCPCS: 36415; 80053; 80061; 84153; 85025; G0103